=== PATIENT | female | born 1945 | race Caucasian/White ===

== ENCOUNTER 2017-06-10 07:49 | Inpatient (IN) ==
[2017-06-10] MEDS ORDERED: 0.9 % Sodium Chloride 1,000 ML IVC ONE (07:57)
[2017-06-10] MEDS ORDERED: Ondansetron 4 MG/2 ML VIAL IVP ONE (07:57)
[2017-06-10] MEDS ORDERED: *HR* FentaNYL (PF) 100 MCG/2 ML VIAL IVP ONE (07:58)
--- NOTE | 2017-06-10 08:06 | Emergency Department Note ---
Disposition Clinical Impression: Hyponatremia Chest pain Qualifiers: Chest pain type: unspecified Qualified Code(s): R07.9 - Chest pain, unspecified Abdominal pain Qualifiers: Abdominal location: epigastric Qualified Code(s): R10.13 - Epigastric pain Disposition: Admitted As Inpatient Condition: Good Abdominal Pain HPI - General Chief Complaint: ED Abdominal Pain Stated Complaint: abd pain Time Seen by Provider: 06/10/17 07:56 Source: patient Mode of arrival: private vehicle Limitations: no limitations Nursing Notes Reviewed: Yes Vital Signs Reviewed: Yes - History of Present Illness HPI Narrative: 71-year-old female history of hypertension, hyperlipidemia, status post appendectomy in the 60s who presents to the ER via EMS due to abdominal pain nausea and vomiting. Patient reports symptoms started yesterday evening. She was nauseated throughout the night had a few episodes of vomiting. Describes the pain as initially in her lower chest and epigastric area with a burning sensation. States it then moved to her left upper quadrant. She has no prior history of pain like this. No history of cardiovascular disease. The states she has palpitations but takes medications for. No fevers, chest pain or shortness of breath at time of arrival. No dysuria or hematuria. No recent illnesses with the exception of bronchitis which she recovered from. No other complaints. Pt Subjective Complaint: abdominal pain Onset (ago): hour(s) Consistency: constant Location: LUQ, epigastric Pain Severity: moderate Pain Scale: 7 Quality: burning Radiation: none Migration to: LUQ Improves with: nothing Worsens with: other (Palpation) Associated symptoms: Reports: nausea, vomiting. Denies: diarrhea, fever, dysuria, hematuria Treatments prior to arrival: none - Related Data Home Medications Medication Instructions Recorded Confirmed Levothyroxine Sodium [Levoxyl] 50 mcg PO DAILY 06/10/17 06/10/17 Metoprolol XL (24 HR) Succ [Toprol 25 mg PO DAILY 06/10/17 06/10/17 XL] [place]-3/Dha/Epa/Fish Oil [Fish Oil 1 cap PO QID 06/10/17 06/10/17 1,000 mg Softgel] Simvastatin [Zocor] 40 mg PO HS 06/10/17 06/10/17 Allergies Allergy/AdvReac Type Severity Reaction Status Date / Time Amoxicillin [From Augmentin] Allergy Rash Verified 06/10/17 07:56 peace Allergy Rash Verified 06/10/17 07:56 clavulanic acid Allergy Rash Verified 06/10/17 07:56 [From Augmentin] diazepam Allergy Rash Verified 06/10/17 07:56 egg Allergy Rash Verified 06/10/17 07:56 ibuprofen Allergy Rash Verified 06/10/17 07:56 peanut Allergy Anaphylaxis Verified 06/10/17 07:56 Penicillins Allergy Rash Verified 06/10/17 07:56 Cyclobenzaprine AdvReac Numbness Verified 06/10/17 09:31 prednisone AdvReac Gastrointestinal Verified 06/10/17 09:31 Upset metals Allergy Rash Uncoded 06/10/17 07:56 All systems ED: reviewed and negative except as stated. Constitutional: Denies: fever Cardiovascular: Denies: chest pain Respiratory: Denies: dyspnea Gastrointestinal: Reports: abdominal pain, nausea, vomiting. Denies: diarrhea Genitourinary: Denies: dysuria, hematuria Abdominal Pain PMH - Past Medical History Medical history: Reports: non-contributory, hypertension Female Surgical History: Reports: appendectomy Psychiatric history: Reports: no psych history - Social History Smoking status: Current some day smoker Alcohol use: Reports: none Drug use: Reports: none Physical Exam - General Limitations: no limitations General appearance: alert, in no apparent distress - Head Head exam: atraumatic, normocephalic - Eye Eye exam: Present: normal appearance - ENT ENT exam: normal exam - Neck Neck exam: Present: normal inspection, full ROM - Chest Chest inspection: Present: normal inspection, symmetric chest wall rise - Respiratory Respiratory exam: Present: normal lung sounds bilaterally - Cardiovascular Cardiovascular exam: Present: regular rate, normal rhythm, normal heart sounds - Abdominal Exam Abdominal exam: Present: soft, tenderness (There is mild epigastric and left upper quadrant tenderness without rigidity or guarding.). Absent: guarding, rigidity - Extremities Exam Extremities exam: Present: normal inspection, full ROM - Expanded Upper Extremity Exam Shoulder exam: Present: normal inspection, full ROM Arm exam: Present: normal inspection, full ROM Elbow exam: Present: normal inspection, full ROM Forearm/Wrist exam: Present: normal inspection, full ROM Hand exam: Present: normal inspection, full ROM - Expanded Lower Extremity Exam Hip/Pelvis exam: Present: normal inspection, full ROM Upper leg exam: Present: normal inspection, full ROM Knee exam: Present: normal inspection, full ROM Lower leg exam: Present: normal inspection, full ROM Ankle exam: Present: normal inspection, full ROM Foot/toe exam: Present: normal inspection, full ROM - Skin Skin exam: Present: warm, dry Course Course Narrative: Patient seen and examined. Vital signs reviewed. We will obtain a CT scan of the abdomen and pelvis for evaluation of abdominal pain. Given her proximity of her pain to her chest we will also obtain an EKG and troponin. We will also give her some IV fluids, GI cocktail and IV pain medication. Vital Signs Temperature 97.8 F 06/10/17 07:53 Pulse Rate 63 06/10/17 07:53 Respiratory Rate 20 06/10/17 07:53 Blood Pressure 177/82 06/10/17 07:53 O2 Sat by Pulse Oximetry 96 06/10/17 07:53 Temperature 97.8 F 06/10/17 07:53 Pulse Rate 63 06/10/17 07:53 Respiratory Rate 20 06/10/17 07:53 Blood Pressure 177/82 06/10/17 07:53 O2 Sat by Pulse Oximetry 96 06/10/17 07:53 Oxygen Delivery Oxygen Delivery Room Air Abdominal Pain - MDM Narrative Medical decision making narrative: 71-year-old female presents to the ER due to abdominal pain nausea and vomiting. She has been sick since yesterday. Her EKG here shows no ischemic findings. Troponin within normal limits. CT scan of the abdomen and pelvis without acute pathology. She is noted to be hyponatremic here at 117 without an obvious etiology. She does have a recent cough treated with antibiotics. We did add legionella antigen on for potential hyponatremia. She is admitted to the hospitalist service for hyponatremia, chest and abdominal pain. - Medical Records Medical records reviewed: Yes I reviewed the patient's medical records. - Lab Data Lab results reviewed: Yes I reviewed the patient's lab results. Result diagrams: 06/10/17 08:11 06/10/17 08:11 Lab Results 06/10/17 06/10/17 06/10/17 Range/Units 08:11 08:11 08:11 WBC 11.8 H (4.3-11.1) K/mcL RBC 4.67 (3.82-4.97) M/mcL Hgb 13.9 (11.5-15.4) g/dL Hct 39.7 (35.3-44.9) % MCV 85.0 (83.0-100.0) fL MCH 29.8 (28.0-33.3) pg MCHC 35.0 (31.6-35.5) g/dL RDW 11.5 (11.5-14.5) % Plt Count 303 (140-400) K/mcL MPV 9.6 (9.4-12.4) fL Immature Gran % 0.6 (0-4) % Seg Neutrophils % 78.1 % Lymphocytes % 15.4 % Monocytes % 4.4 % Eosinophils % 1.0 % Basophils % 0.5 % Neutrophils # 9.2 H (1.6-8.9) K/mcL Lymphocytes # 1.8 (0.6-4.6) K/mcL Monocytes # 0.5 (0.0-1.3) K/mcL Eosinophils # 0.1 (0.0-0.6) K/mcL Basophils # 0.1 (0.0-0.2) K/mcL Sodium 117 L* (136-145) mEq/L Potassium 4.0 (3.5-5.1) mEq/L Chloride 84 L (98-107) mEq/L Carbon Dioxide 28 (23-29) mEq/L BUN 5 L (8-23) mg/dL Creatinine 0.57 L (0.60-1.20) mg/dL Est GFR ( Amer) > 60 (> 60) Est GFR (Non-Af Amer) > 60 (> 60) BUN/Creatinine Ratio 9 (6-26) Glucose 127 H (70-105) mg/dL Calculated Osmolality 243 L (280-300) Calcium 9.1 (8.6-10.3) mg/dL Total Bilirubin 0.9 (0.3-1.0) mg/dL Direct Bilirubin 0.2 (0.0-0.2) mg/dL Indirect Bilirubin 0.7 (0.0-1.2) mg/dL AST 16 (13-39) Units/L ALT 13 (7-52) Units/L Alkaline Phosphatase 88 (34-104) Units/L Troponin I < 0.03 (< 0.04) ng/mL Serum Total Protein 6.6 (6.4-8.9) g/dL Albumin 4.0 (3.5-5.7) g/dL Globulin 2.6 (2.4-3.5) g/dL Albumin/Globulin Ratio 1.5 (1.1-2.2) Lipase 19 (11-82) Units/L Urine Color (Yellow) Urine Clarity (Clear) Urine pH (5.0-8.0) pH Units Ur Specific [place] (1.010-1.025) Urine Protein (Neg-Trace) mg/dL Urine Glucose (UA) (Normal) mg/dL Urine Ketones (Negative) mg/dL Urine Blood (Negative) Urine Nitrite (Negative) Urine Bilirubin (Negative) Urine Urobilinogen (Normal) mg/dL Ur Leukocyte Esterase (Negative) Urine Microscopic RBC (0-3) per hpf Urine Microscopic WBC (0-3) per hpf Ur Squamous Epith Cells (None-Few) per lpf Urine Bacteria (None-Few) per hpf Hyaline Casts (None-Few) per lpf Ur Culture Indicated? (NO) 06/10/17 Range/Units 08:15 WBC (4.3-11.1) K/mcL RBC (3.82-4.97) M/mcL Hgb (11.5-15.4) g/dL Hct (35.3-44.9) % MCV (83.0-100.0) fL MCH (28.0-33.3) pg MCHC (31.6-35.5) g/dL RDW (11.5-14.5) % Plt Count (140-400) K/mcL MPV (9.4-12.4) fL Immature Gran % (0-4) % Seg Neutrophils % % Lymphocytes % % Monocytes % % Eosinophils % % Basophils % % Neutrophils # (1.6-8.9) K/mcL Lymphocytes # (0.6-4.6) K/mcL Monocytes # (0.0-1.3) K/mcL Eosinophils # (0.0-0.6) K/mcL Basophils # (0.0-0.2) K/mcL Sodium (136-145) mEq/L Potassium (3.5-5.1) mEq/L Chloride (98-107) mEq/L Carbon Dioxide (23-29) mEq/L BUN (8-23) mg/dL Creatinine (0.60-1.20) mg/dL Est GFR ( Amer) (> 60) Est GFR (Non-Af Amer) (> 60) BUN/Creatinine Ratio (6-26) Glucose (70-105) mg/dL Calculated Osmolality (280-300) Calcium (8.6-10.3) mg/dL Total Bilirubin (0.3-1.0) mg/dL Direct Bilirubin (0.0-0.2) mg/dL Indirect Bilirubin (0.0-1.2) mg/dL AST (13-39) Units/L ALT (7-52) Units/L Alkaline Phosphatase (34-104) Units/L Troponin I (< 0.04) ng/mL Serum Total Protein (6.4-8.9) g/dL Albumin (3.5-5.7) g/dL Globulin (2.4-3.5) g/dL Albumin/Globulin Ratio (1.1-2.2) Lipase (11-82) Units/L Urine Color Yellow (Yellow) Urine Clarity Cloudy A (Clear) Urine pH 7.5 (5.0-8.0) pH Units Ur Specific [place] 1.015 (1.010-1.025) Urine Protein >=300 H (Neg-Trace) mg/dL Urine Glucose (UA) Normal (Normal) mg/dL Urine Ketones Negative (Negative) mg/dL Urine Blood Negative (Negative) Urine Nitrite Negative (Negative) Urine Bilirubin Negative (Negative) Urine Urobilinogen Normal (Normal) mg/dL Ur Leukocyte Esterase Negative (Negative) Urine Microscopic RBC 0-3 (0-3) per hpf Urine Microscopic WBC 0-3 (0-3) per hpf Ur Squamous Epith Cells Many H (None-Few) per lpf Urine Bacteria None Seen (None-Few) per hpf Hyaline Casts None Seen (None-Few) per lpf Ur Culture Indicated? NO (NO) - Radiology Data Radiology results reviewed: Yes I reviewed the patient's radiology results. Abdomen/Pelvis CT 06/10/17 07:57 IMPRESSION: No acute findings within the abdomen or pelvis. No evidence of obstructive uropathy. Colonic diverticulosis with no acute features. D/ / 06/10/2017 09:43:34 Junaid Hobbs MD / [facility] Interpreting Provider: Junaid Hobbs MD Chest X-Ray 02/08/18 09:28 IMPRESSION: No acute pneumonia. D/ / 06/10/2017 10:10:12 Berto Hernandez MD / [facility] Interpreting Provider: Berto Hernandez MD - EKG Data EKG attestation: Yes I reviewed and interpreted this EKG. EKG results narrative: EKG demonstrates sinus rhythm with a rate of 61 bpm. Normal axis. Normal intervals. Normal of her progression. No gross ST elevations or depressions. No acute ischemic findings. No significant changes from previous EKG dated 11/27. S.B.A.R. - S.B.A.R. Situation: Demographics, MOA Background: Presenting Complaint, Relevant PMH, Meds, & Allergies Assessment: Course and respsone to treatment, Exam Concerns, Patient/Family Expectation, Pertinant Lab Results Recommendation: Barrier(s) to disposition, Recommendation based on pending studies, treatments, or consults S.B.A.R. Report Given to: Dr. Clinton Attestation Statement - Attestation Attestation: I examined this patient and my medical decision-making was reviewed with the Resident Physician, Dr. Jaimes. I agree with the documented findings, disposition and treatment plan as described except to the extent set forth below. Patient is a 71-year-old white female with a history of hypertension hyperlipidemia who presented to the emergency department with complaints of epigastric burning type pain associated with nausea and vomiting that began last night. Patient states she has been having a burning sensation in the epigastric area and this morning is moved over to the left upper quadrant with ongoing nausea. Patient denies any bowel changes, no flank pain or urinary symptoms, no fevers or chills. Patient's been having a bad bronchitis that she just completed a pack of Zithromax and steroids for and her states she is still coughing significantly with productive yellow sputum. Patient having no respiratory distress or increased work of breathing at bedside. I agree with the patient's physical exam findings as documented, vital signs are stable. She reports taking aspirin at home this morning because she was concerned that there were episodes where the pain moved up into her substernal chest area and she was worried that it could be symptoms due to her heart although she reports having difficulty tolerating aspirin. After taking that she feels like her pain increased. Patient had no vomiting while in the ED. Patient's EKG shows normal sinus rhythm at 61 bpm without acute ischemia. Patient had lab evaluation including cardiac enzymes, hepatic panel and lipase, urinalysis as well as chest x-ray and CT imaging of the abdomen and pelvis. At this time all of patient's lab and imaging evaluation is within normal limits. The exception to her labs is hyponatremia at 117. Patient reports that she was aware of this she had her annual exam and on ago with her primary care physician and he had called and told her that her sodium was low and that she was to increase salty snacks. Patient has never had a low sodium in the past, denies any new medications with the exception of her recent antibiotics. At this time we will admit the patient for further evaluation and management of this epigastric/substernal pain with serial enzymes, as well as additional treatment and management of her hyponatremia. Case will be discussed with the hospitalist.
[2017-06-10] MEDS ORDERED: GI Cocktail 40 ML EACH PO ONE (08:07)
[2017-06-10 08:19] LABS: Bilirubin,Urine Negative (Negative); Blood,Urine Negative (Negative); Clarity,Urine Cloudy (Clear); Color,Urine Yellow (Yellow); Glucose,Urine (UA) Normal (Normal); Ketones,Urine Negative (Negative); Leukocyte Esterase,Urine Negative (Negative); Nitrite,Urine Negative (Negative); PH,Urine 7.5 pH Units (5.0-8.0); Protein,Urine >=300 mg/dL (Neg-Trace); Specific Gravity,Urine 1.015 (1.010-1.025); Urobilinogen,Urine Normal (Normal)
[2017-06-10 08:21] LABS: Basophils # 0.1 K/mcL (0.0-0.2); Basophils % 0.5 %; Eosinophils # 0.1 K/mcL (0.0-0.6); Hematocrit 39.7 % (35.3-44.9); Hemoglobin 13.9 g/dL (11.5-15.4); Immature Granulocytes % 0.6 % (0-4); Lymphocytes # 1.8 K/mcL (0.6-4.6); Lymphocytes % 15.4 %; Mean Corpuscular Hemoglobin 29.8 pg (28.0-33.3); Mean Platelet Volume 9.6 fL (9.4-12.4); Monocytes # 0.5 K/mcL (0.0-1.3); Monocytes % 4.4 %; Neutrophils # 9.2 K/mcL (1.6-8.9); Platelet Count 303 K/mcL (140-400); Red Blood Count 4.67 M/mcL (3.82-4.97); Red Cell Distribution Width 11.5 % (11.5-14.5); Segmented Neutrophils % 78.1 %
[2017-06-10 08:22] LABS: Bacteria,Urine None Seen per hpf (None-Few); Hyaline Casts,Urine None Seen per lpf (None-Few); RBC,Urine 0-3 per hpf (0-3); Squamous Epithelial Cell,Urine Many per lpf (None-Few); WBC,Urine 0-3 per hpf (0-3)
[2017-06-10 08:52] LABS: Alanine Aminotransferase 13 Units/L (7-52); Albumin/Globulin Ratio 1.5 (1.1-2.2); Alkaline Phosphatase 88 Units/L (34-104); Aspartate Amino Transferase 16 Units/L (13-39); BUN/Creatinine Ratio 9 (6-26); Bilirubin,Direct 0.2 mg/dL (0.0-0.2); Bilirubin,Indirect 0.7 mg/dL (0.0-1.2); Bilirubin,Total 0.9 mg/dL (0.3-1.0); Blood Urea Nitrogen 5 mg/dL (8-23); Calcium 9.1 mg/dL (8.6-10.3); Carbon Dioxide 28 mEq/L (23-29); Chloride 84 mEq/L (98-107); Globulin 2.6 g/dL (2.4-3.5); Glucose 127 mg/dL (70-105); Lipase 19 Units/L (11-82); Osmolality,Calculated 243 (280-300); Sodium 117 mEq/L (136-145); Total Protein 6.6 g/dL (6.4-8.9); eGFR For African Americans > 60 (> 60); eGFR For Non-African Americans > 60 (> 60)
--- NOTE | 2017-06-10 11:27 | Internal Med History&Physical ---
Date of Encounter: 06/10/17 Time of Encounter: 11:23 Assessment and Plan (1) HTN (hypertension) Current visit: Yes Status: Chronic Chronic, uncontrolled we will adjust all medication as possible patient because of the vomiting that does not have an adequate therapeutic effect Qualifiers: Hypertension type: essential hypertension Qualified Code(s): I10 - Essential (primary) hypertension (2) Hyperlipidemia Current visit: Yes Status: Chronic Chronic we will check lipid profile in a.m. Qualifiers: Hyperlipidemia type: pure hypercholesterolemia Qualified Code(s): E78.00 - Pure hypercholesterolemia, unspecified; E78.0 - Pure hypercholesterolemia (3) Hypothyroidism Current visit: Yes Status: Chronic Chronic Qualifiers: Hypothyroidism type: unspecified Qualified Code(s): E03.9 - Hypothyroidism , unspecified (4) Nausea & vomiting Current visit: Yes Status: Acute There is a likely viral syndrome continue IV hydration Qualifiers: Vomiting type: unspecified Vomiting Intractability: unspecified Qualified Code(s): R11.2 - Nausea with vomiting, unspecified (5) Abdominal pain Current visit: Yes Status: Acute Exam is unremarkable abdomen is soft CT of the abdomen and pelvis unremarkable Qualifiers: Abdominal location: epigastric Qualified Code(s): R10.13 - Epigastric pain (6) Hyponatremia Current visit: Yes Status: Acute most likley hypovolemic hypoosmolar hyponatremia start on normal saline Internal Medicine - H&P: HPI Chief complaint: abd pain, nausea and vomitting Admitted From: Emergency Dept Plans for Post Hospital Care: Home History of present illness: Ms. Scruggs is a 71 year old female Patient with history of hypertension, high cholesterol, hypothyroidism, patient was being treated as an outpatient for bronchitis with Zithromax by PCP physician presented to the emergency room with nausea , vomiting and epigastric pain describes as burning sensation and also lower chest area decided to come into the emergency room emergency room was given GI cocktail and some IV fluid evaluation was unremarkable CT of the abdomen was unremarkable chest x-ray was negative of concern sodium was 117 therefore she been admitted for further evaluation and treatment. White count mildly elevated at 11,000 denies any fever or chills as some mostly dry cough no diarrhea Past Med Surg Social Fam HX - Past Medical History Medical history: non-contributory, hypertension Psychiatric history: no psych history - Social History Smoking Status: Current some day smoker Smokeless Tobacco Status: No Alcohol use: none Drug use: none Internal Medicine - H&P: Meds Levothyroxine Sodium [Levoxyl] 50 mcg PO DAILY 06/10/17 [History] Metoprolol XL (24 HR) Succ [Toprol XL] 25 mg PO DAILY 06/10/17 [History] [place]-3/Dha/Epa/Fish Oil [Fish Oil 1,000 mg Softgel] 1 cap PO QID 06/10/17 [ History] Simvastatin [Zocor] 40 mg PO HS 06/10/17 [History] 3 Allergy/AdvReac Type Severity Reaction Status Date / Time Amoxicillin [From Augmentin] Allergy Rash Verified 06/10/17 07:56 peace Allergy Rash Verified 06/10/17 07:56 clavulanic acid Allergy Rash Verified 06/10/17 07:56 [From Augmentin] diazepam Allergy Rash Verified 06/10/17 07:56 egg Allergy Rash Verified 06/10/17 07:56 ibuprofen Allergy Rash Verified 06/10/17 07:56 peanut Allergy Anaphylaxis Verified 06/10/17 07:56 Penicillins Allergy Rash Verified 06/10/17 07:56 Cyclobenzaprine AdvReac Numbness Verified 06/10/17 09:31 prednisone AdvReac Gastrointestinal Verified 06/10/17 09:31 Upset metals Allergy Rash Uncoded 06/10/17 07:56 All Systems PM: A 10-system review of systems was performed and is negative for pertinent findings except as documented above in the HPI. - Constitutional Constitutional: no chills, no fever(s), no night sweats - EENT Eyes: no change in vision, no discharge, no pain, no photophobia Ears: no ear discharge, no ear pain, no tinnitus Nose, mouth and throat: no dysphagia, no nasal discharge, no neck pain, no sore throat - Cardiovascular Cardiovascular ROS IM: no chest pain, no diaphoresis, no dyspnea, no lightheadedness, no palpitations, no syncope - Respiratory Respiratory: no cough, no dyspnea, no wheezing, no excessive phlegm production - Gastrointestinal Gastrointestinal: nausea, vomiting - Genitourinary Genitourinary: no change in urinary stream, no dysuria, no flank pain, no hematuria - Musculoskeletal Musculoskeletal ROS IM: no numbness, no tingling - Integumentary Integumentary IM: no rash, no unusual bruising - Constitutional Vitals: Temp Pulse Resp BP Pulse Ox 97.8 F 63 20 177/82 96 06/10/17 07:53 06/10/17 07:53 06/10/17 07:53 06/10/17 07:53 06/10/17 07:53 General appearance: Present: A&O X 3 - Eye Eye exam: Present: PERRL, conjuntiva pink, sclera anicteric Pupils: Present: PERRL - Neck Neck exam general surgery: Present: supple, trachea midline. Absent: lymphadenopathy - Cardiovascular Cardiovascular exam: Present: RRR, +S1, +S2. Absent: diastolic murmur, gallop, rubs, systolic murmur - GI/Abdominal GI/Abdominal exam: Present: soft - Extremities Exam Extremities exam: Present: warm, radial pulses palpable and symmetrical. Absent : calf tenderness, cyanotic, pedal edema Internal Med - H&P Results - Labs CBC & Chem 7: 06/10/17 08:11 06/10/17 08:11 Labs: Short CBC 06/10/17 Range/Units 08:11 WBC 11.8 H (4.3-11.1) K/mcL Hgb 13.9 (11.5-15.4) g/dL Hct 39.7 (35.3-44.9) % Plt Count 303 (140-400) K/mcL Neutrophils # 9.2 H (1.6-8.9) K/mcL BMP 06/10/17 08:11 Sodium 117 L* Potassium 4.0 Chloride 84 L Carbon Dioxide 28 BUN 5 L Creatinine 0.57 L Glucose 127 H Calcium 9.1 Cardiac Enzymes 06/10/17 Range/Units 08:11 Troponin I < 0.03 (< 0.04) ng/mL Liver Function 06/10/17 Range/Units 08:11 Total Bilirubin 0.9 (0.3-1.0) mg/dL Direct Bilirubin 0.2 (0.0-0.2) mg/dL AST 16 (13-39) Units/L ALT 13 (7-52) Units/L Alkaline Phosphatase 88 (34-104) Units/L Albumin 4.0 (3.5-5.7) g/dL Urine 06/10/17 Range/Units 08:15 Urine Color Yellow (Yellow) Urine Clarity Cloudy A (Clear) Urine pH 7.5 (5.0-8.0) pH Units Ur Specific [place] 1.015 (1.010-1.025) Urine Protein >=300 H (Neg-Trace) mg/dL Urine Glucose (UA) Normal (Normal) mg/dL - Impressions ITS Impressions Abdomen/Pelvis CT 06/10/17 07:57 IMPRESSION: No acute findings within the abdomen or pelvis. No evidence of obstructive uropathy. Colonic diverticulosis with no acute features. D/ / 06/10/2017 09:43:34 Junaid Hobbs MD / [facility] Interpreting Provider: Junaid Hobbs MD Chest X-Ray 06/10/17 09:28 IMPRESSION: No acute pneumonia. D/ / 06/10/2017 10:10:12 Berto Hernandez MD / [facility] Interpreting Provider: Berto Hernandez MD
[2017-06-10] MEDS ORDERED: traMADol 50 MG TABLET PO PRN (11:37)
[2017-06-10] MEDS ORDERED: Naloxone 0.4 MG/ML INJ IVP PRN (11:37)
[2017-06-10] MEDS ORDERED: Acetaminophen 325 MG TABLET PO PRN (11:37)
[2017-06-10] MEDS ORDERED: (Omega-3/Dha/Epa/Fish Oil [Fish Oil 1,000 Mg Softgel) PO SCH (13:00)
[2017-06-10] MEDS: 0.9 % Sodium Chloride 1,000 ML IVC SCH (13:15)
[2017-06-10] MEDS ORDERED: Ondansetron 4 MG/2 ML VIAL IVP PRN (17:52)
[2017-06-11] MEDS: 0.9 % Sodium Chloride 1,000 ML IVC SCH ×3 (00:08→20:33)
[2017-06-11 00:41] LABS: Basophils # 0.1 K/mcL (0.0-0.2); Basophils % 0.5 %; Eosinophils # 0.1 K/mcL (0.0-0.6); Eosinophils % 1.3 %; Hematocrit 32.9 % (35.3-44.9); Immature Granulocytes % 0.5 % (0-4); Lymphocytes # 2.7 K/mcL (0.6-4.6); Lymphocytes % 25.8 %; Mean Corpuscular HGB Conc 36.2 g/dL (31.6-35.5); Mean Corpuscular Hemoglobin 30.5 pg (28.0-33.3); Mean Corpuscular Volume 84.4 fL (83.0-100.0); Mean Platelet Volume 9.7 fL (9.4-12.4); Monocytes # 0.6 K/mcL (0.0-1.3); Monocytes % 5.5 %; Platelet Count 247 K/mcL (140-400); Red Cell Distribution Width 11.7 % (11.5-14.5); Segmented Neutrophils % 66.4 %
[2017-06-11 00:45] LABS: Hemoglobin 11.9 g/dL (11.5-15.4)
[2017-06-11 02:13] LABS: Alanine Aminotransferase 11 Units/L (7-52); Albumin 3.3 g/dL (3.5-5.7); Albumin/Globulin Ratio 1.6 (1.1-2.2); Alkaline Phosphatase 74 Units/L (34-104); Aspartate Amino Transferase 18 Units/L (13-39); BUN/Creatinine Ratio 8 (6-26); Bilirubin,Total 0.7 mg/dL (0.3-1.0); Blood Urea Nitrogen 5 mg/dL (8-23); Calcium 8.3 mg/dL (8.6-10.3); Carbon Dioxide 24 mEq/L (23-29); Chloride 89 mEq/L (98-107); Chol/HDL Ratio 2.9 (0-4.9); Cholesterol 124 mg/dL (< 200); Globulin 2.1 g/dL (2.4-3.5); Glucose 150 mg/dL (70-105); HDL Cholesterol 43 mg/dL (40-59); LDL Cholesterol,Calculated 60 mg/dL (0-99); Magnesium 1.6 mg/dL (1.6-2.6); Osmolality,Calculated 248 (280-300); Potassium 3.4 mEq/L (3.5-5.1); Sodium 119 mEq/L (136-145); Total Protein 5.4 g/dL (6.4-8.9); Triglycerides 107 mg/dL (< 150); eGFR For African Americans > 60 (> 60); eGFR For Non-African Americans > 60 (> 60)
--- NOTE | 2017-06-11 06:42 | Electrocardiograph Report ---
[facility] Test Date: 2017-06-10 Pat Name: Kalie Scruggs Department: 104 Room: [facility] Gender: F [employer] Tower Operator: CANDACE : 1945 Requested By: Williams Jaimes Order Number: [id number] Reading MD: Chace Frye MD Measurements Intervals [place] Rate: 61 P: 64 CT: 205 QRS: 54 QRSD: 86 T: 58 QT: 423 QTc: 427 Interpretive Statements SINUS RHYTHM Electronically Signed On 06-11-2017 6:41:08 EST by Chace Frye MD
[2017-06-11] MEDS: Metoprolol XL (24 HR) Succ 25 MG TAB.ER.24H PO SCH (09:09)
[2017-06-11 09:27] LABS: BUN/Creatinine Ratio 7 (6-26); Blood Urea Nitrogen 4 mg/dL (8-23); Calcium 8.7 mg/dL (8.6-10.3); Carbon Dioxide 27 mEq/L (23-29); Chloride 91 mEq/L (98-107); Glucose 101 mg/dL (70-105); Magnesium 1.9 mg/dL (1.6-2.6); Osmolality,Calculated 251 (280-300); Phosphorous 3.4 mg/dL (2.7-4.5); Potassium 4.1 mEq/L (3.5-5.1); Sodium 122 mEq/L (136-145); eGFR For African Americans > 60 (> 60); eGFR For Non-African Americans > 60 (> 60)
--- NOTE | 2017-06-11 14:05 | Internal Med Progress Note ---
Date of Encounter: 06/11/17 Time of Encounter: 14:03 - Assessment and plan (1) Abdominal pain Current Visit: Yes Status: Resolved Assessment and plan: reports of mild epigastric discomfort will start PPI tolerating PO intake well at this time Qualifiers: Abdominal location: epigastric Qualified Code(s): R10.13 - Epigastric pain (2) Hyponatremia Current Visit: Yes Status: Acute Assessment and plan: likely secondary to poor PO intake improving goal improvement in 24 hours: 6-8meq will repeat BMP at 5pm, if Na greater than 130, will start D5W 0.45% NS continue NS at this time clinically asymptomatic (3) Nausea & vomiting Current Visit: Yes Status: Acute Assessment and plan: improved continue anti-emetics as needed Qualifiers: Vomiting type: unspecified Vomiting Intractability: unspecified Qualified Code(s): R11.2 - Nausea with vomiting, unspecified (4) HTN (hypertension) Current Visit: Yes Status: Chronic Assessment and plan: BP within acceptable range continue home meds Qualifiers: Hypertension type: essential hypertension Qualified Code(s): I10 - Essential (primary) hypertension (5) Hyperlipidemia Current Visit: Yes Status: Chronic Assessment and plan: continue home meds Qualifiers: Hyperlipidemia type: pure hypercholesterolemia Qualified Code(s): E78.00 - Pure hypercholesterolemia, unspecified; E78.0 - Pure hypercholesterolemia (6) Hypothyroidism Current Visit: Yes Status: Chronic Assessment and plan: continue levothyroxine Qualifiers: Hypothyroidism type: unspecified Qualified Code(s): E03.9 - Hypothyroidism , unspecified (7) DVT prophylaxis Current Visit: Yes Status: Acute Assessment and plan: Heparin SQ - Subjective Interval history: Pt seen and examined with family present at bedside. Resting in bed. denies any nausea or vomiting. Tolerating PO intake. Reports of epigastric pain which is improved since admission. States she has history of acid reflux however she only takes her PPI occasionally. Denies any chest pain, sob, headache, n/v at this time. - Constitutional Vitals: Temp Pulse Resp BP Pulse Ox 98.4 F 69 17 130/71 94 06/11/17 10:49 06/11/17 10:49 06/11/17 10:49 06/11/17 10:49 06/11/17 10:49 General appearance: Present: cooperative, A&O X 3, pleasant, no acute distress - Head Head exam: Present: atraumatic, normocephalic - Eye Eye exam: Present: conjuntiva pink, sclera anicteric - Respiratory Respiratory exam: Present: CTAB. Absent: respiratory distress, wheezes - Cardiovascular Cardiovascular exam: Present: RRR, +S1, +S2. Absent: diastolic murmur, gallop, rubs, systolic murmur - GI/Abdominal GI/Abdominal exam: Present: normal bowel sounds, soft, no peritoneal signs. Absent: distended, tenderness - Extremities Exam Extremities exam: Present: warm, radial pulses palpable and symmetrical. Absent : calf tenderness, pedal edema - Neurological Exam Neurological exam: Present: alert, oriented X3 - Psychiatric Psychiatric exam: Present: normal affect, normal mood Internal Medicine: Result - Labs CBC & Chem 7: 06/11/17 00:30 06/11/17 08:57 Labs: BMP 06/11/17 08:57 Sodium 122 L Potassium 4.1 Chloride 91 L Carbon Dioxide 27 BUN 4 L Creatinine 0.61 Glucose 101 Calcium 8.7 Consult Discharge Plan - Plan Referrals: Scott Shine DO [Primary Care Provider] -
[2017-06-11] MEDS: *HR* Heparin 5,000 UNIT/ML VIAL SQ SCH (17:26)
[2017-06-11 18:10] LABS: BUN/Creatinine Ratio 11 (6-26); Blood Urea Nitrogen 7 mg/dL (8-23); Calcium 8.5 mg/dL (8.6-10.3); Carbon Dioxide 25 mEq/L (23-29); Chloride 92 mEq/L (98-107); Glucose 147 mg/dL (70-105); Osmolality,Calculated 255 (280-300); Potassium 3.9 mEq/L (3.5-5.1); Sodium 122 mEq/L (136-145); eGFR For African Americans > 60 (> 60); eGFR For Non-African Americans > 60 (> 60)
[2017-06-12] MEDS: *HR* Heparin 5,000 UNIT/ML VIAL SQ SCH ×2 (05:50→16:55)
[2017-06-12] MEDS: 0.9 % Sodium Chloride 1,000 ML IVC SCH ×2 (06:40→16:56)
[2017-06-12 07:49] LABS: Basophils # 0.1 K/mcL (0.0-0.2); Basophils % 0.6 %; Eosinophils # 0.1 K/mcL (0.0-0.6); Eosinophils % 1.4 %; Hematocrit 33.1 % (35.3-44.9); Hemoglobin 11.5 g/dL (11.5-15.4); Immature Granulocytes % 0.4 % (0-4); Lymphocytes # 2.1 K/mcL (0.6-4.6); Lymphocytes % 27.3 %; Mean Corpuscular HGB Conc 34.7 g/dL (31.6-35.5); Mean Corpuscular Hemoglobin 30.1 pg (28.0-33.3); Mean Corpuscular Volume 86.6 fL (83.0-100.0); Mean Platelet Volume 10.6 fL (9.4-12.4); Monocytes # 0.6 K/mcL (0.0-1.3); Monocytes % 7.2 %; Neutrophils # 4.9 K/mcL (1.6-8.9); Platelet Count 240 K/mcL (140-400); Red Blood Count 3.82 M/mcL (3.82-4.97); Red Cell Distribution Width 11.9 % (11.5-14.5); Segmented Neutrophils % 63.1 %
[2017-06-12] MEDS: Metoprolol XL (24 HR) Succ 25 MG TAB.ER.24H PO SCH (07:49)
[2017-06-12 08:10] LABS: BUN/Creatinine Ratio 9 (6-26); Blood Urea Nitrogen 5 mg/dL (8-23); Calcium 8.5 mg/dL (8.6-10.3); Carbon Dioxide 22 mEq/L (23-29); Chloride 97 mEq/L (98-107); Glucose 147 mg/dL (70-105); Magnesium 1.8 mg/dL (1.6-2.6); Osmolality,Calculated 262 (280-300); Phosphorous 3.6 mg/dL (2.7-4.5); Sodium 126 mEq/L (136-145); eGFR For African Americans > 60 (> 60); eGFR For Non-African Americans > 60 (> 60)
--- NOTE | 2017-06-12 15:50 | Internal Med Progress Note ---
Date of Encounter: 06/12/17 Time of Encounter: 15:16 - Assessment and plan (1) Abdominal pain Current Visit: Yes Status: Resolved Assessment and plan: reports of mild epigastric discomfort continue PPI tolerating PO intake well at this time Qualifiers: Abdominal location: epigastric Qualified Code(s): R10.13 - Epigastric pain (2) Hyponatremia Current Visit: Yes Status: Acute Assessment and plan: likely secondary to poor PO intake improving goal improvement in 24 hours: 6-8meq will repeat BMP at 5pm, if Na greater than 134, will start D5W 0.45% NS continue NS at this time clinically asymptomatic (3) Nausea & vomiting Current Visit: Yes Status: Acute Assessment and plan: improved continue anti-emetics as needed Qualifiers: Vomiting type: unspecified Vomiting Intractability: unspecified Qualified Code(s): R11.2 - Nausea with vomiting, unspecified (4) HTN (hypertension) Current Visit: Yes Status: Chronic Assessment and plan: BP within acceptable range continue home meds Qualifiers: Hypertension type: essential hypertension Qualified Code(s): I10 - Essential (primary) hypertension (5) Hyperlipidemia Current Visit: Yes Status: Chronic Assessment and plan: continue home meds Qualifiers: Hyperlipidemia type: pure hypercholesterolemia Qualified Code(s): E78.00 - Pure hypercholesterolemia, unspecified; E78.0 - Pure hypercholesterolemia (6) Hypothyroidism Current Visit: Yes Status: Chronic Assessment and plan: continue levothyroxine Qualifiers: Hypothyroidism type: unspecified Qualified Code(s): E03.9 - Hypothyroidism , unspecified (7) DVT prophylaxis Current Visit: Yes Status: Acute Assessment and plan: Heparin SQ - Subjective Interval history: Pt seen and examined with family present at bedside. Resting in bed. denies any nausea or vomiting. Tolerating PO intake. Reports of improvement in epigastric pain - Constitutional Vitals: Temp Pulse Resp BP Pulse Ox 98.1 F 69 16 161/75 96 06/12/17 15:44 06/12/17 15:44 06/12/17 15:44 06/12/17 15:44 06/12/17 15:44 General appearance: Present: cooperative, A&O X 3, pleasant, no acute distress - Head Head exam: Present: atraumatic, normocephalic - Eye Eye exam: Present: conjuntiva pink, sclera anicteric - Respiratory Respiratory exam: Present: CTAB. Absent: respiratory distress, wheezes - Cardiovascular Cardiovascular exam: Present: RRR, +S1, +S2. Absent: diastolic murmur, gallop, rubs, systolic murmur - GI/Abdominal GI/Abdominal exam: Present: normal bowel sounds, soft, no peritoneal signs. Absent: distended, tenderness - Extremities Exam Extremities exam: Present: warm, radial pulses palpable and symmetrical. Absent : calf tenderness, pedal edema - Neurological Exam Neurological exam: Present: alert, oriented X3 Internal Medicine: Result - Labs CBC & Chem 7: 06/12/17 07:17 06/12/17 07:17 Labs: Short CBC 06/12/17 Range/Units 07:17 WBC 7.8 (4.3-11.1) K/mcL Hgb 11.5 (11.5-15.4) g/dL Hct 33.1 L (35.3-44.9) % Plt Count 240 (140-400) K/mcL Neutrophils # 4.9 (1.6-8.9) K/mcL BMP 06/11/17 06/12/17 17:40 07:17 Sodium 122 L 126 L Potassium 3.9 4.0 Chloride 92 L 97 L Carbon Dioxide 25 22 L BUN 7 L 5 L Creatinine 0.65 0.56 L Glucose 147 H 147 H Calcium 8.5 L 8.5 L Consult Discharge Plan - Plan Referrals: Scott Shine DO [Primary Care Provider] -
[2017-06-12 20:12] LABS: BUN/Creatinine Ratio 11 (6-26); Blood Urea Nitrogen 9 mg/dL (8-23); Calcium 8.6 mg/dL (8.6-10.3); Carbon Dioxide 23 mEq/L (23-29); Chloride 98 mEq/L (98-107); Glucose 119 mg/dL (70-105); Osmolality,Calculated 266 (280-300); Potassium 4.3 mEq/L (3.5-5.1); Sodium 128 mEq/L (136-145); eGFR For African Americans > 60 (> 60); eGFR For Non-African Americans > 60 (> 60)
[2017-06-13] MEDS: 0.9 % Sodium Chloride 1,000 ML IVC SCH (02:50)
[2017-06-13] MEDS: *HR* Heparin 5,000 UNIT/ML VIAL SQ SCH (06:10)
[2017-06-13] MEDS: Metoprolol XL (24 HR) Succ 25 MG TAB.ER.24H PO SCH (08:30)
[2017-06-13 09:31] LABS: Basophils # 0.1 K/mcL (0.0-0.2); Basophils % 0.9 %; Eosinophils # 0.1 K/mcL (0.0-0.6); Eosinophils % 1.6 %; Hematocrit 35.9 % (35.3-44.9); Hemoglobin 12.1 g/dL (11.5-15.4); Immature Granulocytes % 0.4 % (0-4); Lymphocytes # 1.9 K/mcL (0.6-4.6); Lymphocytes % 25.2 %; Mean Corpuscular HGB Conc 33.7 g/dL (31.6-35.5); Mean Corpuscular Hemoglobin 30.1 pg (28.0-33.3); Mean Corpuscular Volume 89.3 fL (83.0-100.0); Mean Platelet Volume 10.5 fL (9.4-12.4); Monocytes # 0.4 K/mcL (0.0-1.3); Monocytes % 5.9 %; Neutrophils # 4.9 K/mcL (1.6-8.9); Platelet Count 276 K/mcL (140-400); Red Blood Count 4.02 M/mcL (3.82-4.97); Red Cell Distribution Width 11.9 % (11.5-14.5)
[2017-06-13 10:03] LABS: BUN/Creatinine Ratio 10 (6-26); Blood Urea Nitrogen 6 mg/dL (8-23); Calcium 8.8 mg/dL (8.6-10.3); Carbon Dioxide 28 mEq/L (23-29); Chloride 93 mEq/L (98-107); Glucose 121 mg/dL (70-105); Magnesium 1.8 mg/dL (1.6-2.6); Osmolality,Calculated 263 (280-300); Phosphorous 3.4 mg/dL (2.7-4.5); Potassium 3.6 mEq/L (3.5-5.1); Sodium 127 mEq/L (136-145); eGFR For African Americans > 60 (> 60); eGFR For Non-African Americans > 60 (> 60)
[2017-06-13 12:16] VITALS: BP 149/62
--- NOTE | 2017-06-13 12:17 | Discharge Summary ---
Date of Encounter: 06/13/17 Time of Encounter: 11:40 - Discharge Diagnosis (1) Abdominal pain Priority: Primary Status: Resolved Qualifiers: Abdominal location: epigastric Qualified Code(s): R10.13 - Epigastric pain (2) Hyponatremia Priority: Secondary Status: Acute (3) Nausea & vomiting Priority: Primary Status: Resolved Qualifiers: Vomiting type: unspecified Vomiting Intractability: unspecified Qualified Code(s): R11.2 - Nausea with vomiting, unspecified (4) HTN (hypertension) Priority: Secondary Status: Chronic Qualifiers: Hypertension type: essential hypertension Qualified Code(s): I10 - Essential (primary) hypertension (5) Hyperlipidemia Priority: Secondary Status: Chronic Qualifiers: Hyperlipidemia type: pure hypercholesterolemia Qualified Code(s): E78.00 - Pure hypercholesterolemia, unspecified; E78.0 - Pure hypercholesterolemia (6) Hypothyroidism Priority: Secondary Status: Chronic Qualifiers: Hypothyroidism type: unspecified Qualified Code(s): E03.9 - Hypothyroidism , unspecified (7) DVT prophylaxis Priority: Secondary Status: Acute - Discharge Medications Prescriptions: Omeprazole [PriLOSEC] 40 mg PO BIDAC #60 capsule. [place] Medications: Levothyroxine Sodium [Levoxyl] 50 mcg PO DAILY 06/10/17 [History] Metoprolol XL (24 HR) Succ [Toprol Xl] 25 mg PO DAILY 06/10/17 [History] Fife-3/Dha/Epa/Fish Oil [Fish Oil 1,000 mg Softgel] 1 cap PO QID 06/10/17 [ History] Simvastatin [Zocor] 40 mg PO HS 06/10/17 [History] Omeprazole [PriLOSEC] 40 mg PO BIDAC #60 capsule. 06/13/17 [Rx] Allergies/Adverse Reactions: 3 Allergy/AdvReac Type Severity Reaction Status Date / Time Amoxicillin [From Augmentin] Allergy Rash Verified 06/10/17 07:56 peace Allergy Rash Verified 06/10/17 07:56 clavulanic acid Allergy Rash Verified 06/10/17 07:56 [From Augmentin] diazepam Allergy Rash Verified 06/10/17 07:56 egg Allergy Rash Verified 06/10/17 07:56 ibuprofen Allergy Rash Verified 06/10/17 07:56 peanut Allergy Anaphylaxis Verified 06/10/17 07:56 Penicillins Allergy Rash Verified 06/10/17 07:56 Cyclobenzaprine AdvReac Numbness Verified 06/10/17 09:31 prednisone AdvReac Gastrointestinal Verified 06/10/17 09:31 Upset metals Allergy Rash Uncoded 06/10/17 07:56 Date of admission: 06/11/17 08:31 Primary care physician: Harley Edwards Consults: 06/12/17 09:34 Consult to Occupational Therapy [CONS] Stat Comment: Evaluate, develop and implement POC Reason for Consult: evaluation for disposition Consult to Physical Therapy [CONS] Stat Comment: Evaluate, develop and implement POC Reason for Consult: evaluation for disposition Discharging clinician: Baylee Conrad Anticipated date of discharge: 06/13/17 - Patient Status Disposition: Home, Self-Care Condition: Good Functional capacity at discharge: independent ambulation Overall status at discharge: patient is back to baseline - Ambulatory Orders Ambulatory Orders: Basic Metabolic Panel [CHEM] Time Frame: 1 Week, Facility: [facility], Location: Lab - Discharge Instructions Follow Up With: Scott Shine DO [Primary Care Provider] - Additional Instructions: Please follow up with your primary care physician within five days after your discharge from the hospital. Please obtain the prescribed lab work prior to your follow up with your primary care physician. Omeprazole twice a day has been added to your home medications, please ask your primary care physician about [facility] continuation of this medication Resume all other home medications as prescribed by your primary care physician. - Diet and Activity Activity: resume usual activities as tolerated Diet: low fat, low cholesterol, low salt diet Hospital course: Ms. Scruggs is a 71 year old female with PMH of HLD, HTN, Hypothyroidism who was admitted for abd pain, hyponatremia, and severe n/v. Pt was started on supportive care with IV fluids and anti-emetic support to which she responded appropriately. She reported history of acid reflux and epigastric discomfort for which she was started on PPI BID to which she responded well with complete resolution of abd pain. She has been tolerating PO intake well without any further n/v. She was noted to be hyponatremic and has history of chronic hyponatremia. Currently her Na level has returned to baseline. She is AAO x 3, hemodynamically stable and will be discharged to home with follow up with her PCP. Pt demonstrates understanding of her diagnosis and agrees with the discharge care and plan. - Time Spent with Patient Total time spent providing and/or coordinating discharge services: Less than 30 minutes - Constitutional Vitals: Temp Pulse Resp BP Pulse Ox 97.9 F 74 15 142/64 98 06/13/17 07:35 06/13/17 07:35 06/13/17 07:35 06/13/17 07:35 06/13/17 08:36 General appearance: Present: cooperative, A&O X 3, pleasant, no acute distress, answers questions appropriately - Head Head exam: Present: atraumatic, normocephalic - Eye Eye exam: Present: conjuntiva pink, sclera anicteric - Respiratory Respiratory exam: Present: CTAB. Absent: accessory muscle use, rales, rhonchi, wheezes - Cardiovascular Cardiovascular exam: Present: RRR, +S1, +S2. Absent: diastolic murmur, gallop, rubs, systolic murmur - GI/Abdominal GI/Abdominal exam: Present: normal bowel sounds, soft, no peritoneal signs. Absent: distended, tenderness - Extremities Exam Extremities exam: Present: warm, radial pulses palpable and symmetrical. Absent : calf tenderness, pedal edema - Neurological Exam Neurological exam: Present: alert, oriented X3
== END 2017-06-13 13:47 | disposition home or self-care (01) | DRG 641 ==
LOC: EMEROO 07:49 → 2ANU 07:49
PROVIDERS: ADMIT Internal Medicine Cardiovascular Disease; ATTEND Internal Medicine

== ENCOUNTER 2017-06-23 18:14 | Observation (INO) ==
[2017-06-23 20:01] LABS: Basophils # 0.1 K/mcL (0.0-0.2); Basophils % 0.6 %; Eosinophils # 0.2 K/mcL (0.0-0.6); Eosinophils % 2.1 %; Hematocrit 35.2 % (35.3-44.9); Hemoglobin 12.2 g/dL (11.5-15.4); Immature Granulocytes % 0.6 % (0-4); Lymphocytes # 2.5 K/mcL (0.6-4.6); Lymphocytes % 26.5 %; Mean Corpuscular HGB Conc 34.7 g/dL (31.6-35.5); Mean Corpuscular Hemoglobin 29.5 pg (28.0-33.3); Mean Corpuscular Volume 85.2 fL (83.0-100.0); Mean Platelet Volume 9.6 fL (9.4-12.4); Monocytes # 0.9 K/mcL (0.0-1.3); Monocytes % 9.2 %; Neutrophils # 5.7 K/mcL (1.6-8.9); Platelet Count 395 K/mcL (140-400); Red Blood Count 4.13 M/mcL (3.82-4.97); Red Cell Distribution Width 11.5 % (11.5-14.5)
[2017-06-23] MEDS ORDERED: 0.9 % Sodium Chloride 1,000 ML IVC ONE (20:08)
--- NOTE | 2017-06-23 20:11 | Emergency Department Note ---
Disposition Clinical Impression: Hyponatremia, Mediastinal mass, Hemoptysis Disposition: Admitted As Inpatient Condition: Fair Time of Disposition: 21:51 General Adult HPI - General Chief complaint: ED General Medical Stated complaint: "coughing up blood clots" Time Seen by Provider: 06/23/17 19:43 Source: patient Mode of arrival: ambulatory Limitations: no limitations Nursing Notes Reviewed: Yes Vital Signs Reviewed: Yes - History of Present Illness HPI Narrative: 71-year-old female with a history of hyponatremia with recent hospitalization, tobacco use present for evaluation of coughing up blood. Patient states symptom onset was earlier today. Denies any dyspnea. Patient states that she felt it could have been from her sinuses. Patient denies any chest pain. No fevers. Patient has abdominal pain. No nausea vomiting. Patient states she was recently admitted for low sodium. Patient had a sodium checked a few days ago and was noted to be 117 -118. Patient is not on any sodium supplementation. Patient reports not being on any blood thinners. Pain Scale: 0 - Related Data Home Medications Medication Instructions Recorded Confirmed Levothyroxine Sodium [Levoxyl] 50 mcg PO QAM 06/10/17 06/23/17 Metoprolol XL (24 HR) Succ [Toprol 25 mg PO DAILY 06/10/17 06/23/17 Xl] [place]-3/Dha/Epa/Fish Oil [Fish Oil 2 cap PO BID 06/10/17 06/23/17 1,000 mg Softgel] Simvastatin [Zocor] 40 mg PO QPM 06/10/17 06/23/17 Previous Rx's Medication Instructions Recorded Omeprazole [PriLOSEC] 40 mg PO BIDAC #60 capsule. 06/13/17 Allergies Allergy/AdvReac Type Severity Reaction Status Date / Time Amoxicillin [From Augmentin] Allergy Rash Verified 06/10/17 07:56 peace Allergy Rash Verified 06/10/17 07:56 clavulanic acid Allergy Rash Verified 06/10/17 07:56 [From Augmentin] diazepam Allergy Rash Verified 06/10/17 07:56 egg Allergy Rash Verified 06/10/17 07:56 ibuprofen Allergy Rash Verified 06/10/17 07:56 peanut Allergy Anaphylaxis Verified 06/10/17 07:56 Penicillins Allergy Rash Verified 06/10/17 07:56 Cyclobenzaprine AdvReac Numbness Verified 02/08/18 09:31 prednisone AdvReac Gastrointestinal Verified 06/10/17 09:31 Upset metals Allergy Rash Uncoded 06/10/17 07:56 All systems ED: reviewed and negative except as stated. Constitutional: Denies: fever Cardiovascular: Denies: chest pain Respiratory: Denies: cough Gastrointestinal: Denies: abdominal pain, nausea Genitourinary: Denies: urgency, dysuria Past Medical History - Past Medical History Source: patient Medical history: Reports: arthritis, hyperlipidemia, hypertension, thyroid disease Surgical history: Reports: appendectomy Psychiatric history: Reports: no psych history - Social History Smoking Status: Former smoker Smokeless Tobacco Status: No Alcohol use: Reports: none Drug use: Reports: none Physical Exam - General Limitations: no limitations General appearance: alert, in no apparent distress - Head Head exam: atraumatic, normocephalic, normal inspection - Eye Eye exam: Present: normal appearance, PERRL, EOMI - ENT ENT exam: normal exam - Neck Neck exam: Present: normal inspection - Chest Chest inspection: Present: normal inspection. Absent: symmetric chest wall rise - Respiratory Respiratory exam: Present: normal lung sounds bilaterally. Absent: respiratory distress - Cardiovascular Cardiovascular exam: Present: regular rate, normal rhythm. Absent: systolic murmur - Abdominal Exam Abdominal exam: Present: soft, Non-Tender - Extremities Exam Extremities exam: Present: normal inspection. Absent: pedal edema - Back Exam Back exam: Present: normal inspection - Neurological Exam Neurological exam: Present: alert, oriented X3, CN II-XII intact - Skin Skin exam: Present: warm, dry, intact, normal color Course - Reevaluation(s) Reevaluation #1: Patients resting comfortable. Patient's radiology results of her CAT scan were discussed. Questions were initially answered at bedside. Time: 22:57 Vital Signs Temperature 98.4 F 06/23/17 18:50 Pulse Rate 73 06/23/17 18:50 Respiratory Rate 18 06/23/17 18:50 Blood Pressure 172/89 06/23/17 18:50 O2 Sat by Pulse Oximetry 96 06/23/17 18:50 Temperature 98.2 F 06/23/17 23:52 Pulse Rate 67 06/23/17 23:52 Respiratory Rate 12 06/23/17 23:52 Blood Pressure 147/74 06/23/17 23:52 O2 Sat by Pulse Oximetry 97 06/23/17 23:52 Oxygen Delivery Oxygen Delivery Room Air Medical Decision Making - [facility] Narrative Medical decision making narrative: Patient presents with an isolated episode of hemoptysis. Patient does have a recent hospitalization related to low sodium levels. On exam the patient is in no acute distress. Patient's not on any blood thinners. Patient does not have any risk factors for PE. 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 Patient's CT of the chest shows a mediastinal mass concerning for malignancy. Patient's sodium level was 123. Patient does have urine sodium electrolytes pending however the patient's fluid status appears to be euvolemic. Patient will require admission to the hospital service for further management of her sodium levels was hemoptysis and workup of presumed malignancy. - Lab Data Lab results reviewed: Yes I reviewed the patient's lab results. Result diagrams: 06/23/17 19:50 06/23/17 19:50 Lab Results 06/23/17 06/23/17 06/23/17 Range/Units 19:50 19:50 19:50 WBC 9.3 (4.3-11.1) K/mcL RBC 4.13 (3.82-4.97) M/mcL Hgb 12.2 (11.5-15.4) g/dL Hct 35.2 L (35.3-44.9) % MCV 85.2 (83.0-100.0) fL MCH 29.5 (28.0-33.3) pg MCHC 34.7 (31.6-35.5) g/dL RDW 11.5 (11.5-14.5) % Plt Count 395 (140-400) K/mcL MPV 9.6 (9.4-12.4) fL Immature Gran % 0.6 (0-4) % Seg Neutrophils % 61.0 % Lymphocytes % 26.5 % Monocytes % 9.2 % Eosinophils % 2.1 % Basophils % 0.6 % Neutrophils # 5.7 (1.6-8.9) K/mcL Lymphocytes # 2.5 (0.6-4.6) K/mcL Monocytes # 0.9 (0.0-1.3) K/mcL Eosinophils # 0.2 (0.0-0.6) K/mcL Basophils # 0.1 (0.0-0.2) K/mcL PT 10.9 (9.4-12.1) Seconds INR 1.0 APTT 32.7 (26.0-36.0) Seconds Sodium 123 L (136-145) mEq/L Potassium 3.9 (3.5-5.1) mEq/L Chloride 90 L (98-107) mEq/L Carbon Dioxide 28 (23-29) mEq/L BUN 8 (8-23) mg/dL Creatinine 0.59 L (0.60-1.20) mg/dL Est GFR ( Amer) > 60 (> 60) Est GFR (Non-Af Amer) > 60 (> 60) BUN/Creatinine Ratio 14 (6-26) Glucose 97 (70-105) mg/dL Calculated Osmolality 254 L (280-300) Calcium 9.2 (8.6-10.3) mg/dL TSH 4.984 (0.340-5.600) mcIU/mL Urine Color (Yellow) Urine Clarity (Clear) Urine pH (5.0-8.0) pH Units Ur Specific [place] (1.010-1.025) Urine Protein (Neg-Trace) mg/dL Urine Glucose (UA) (Normal) mg/dL Urine Ketones (Negative) mg/dL Urine Blood (Negative) Urine Nitrite (Negative) Urine Bilirubin (Negative) Urine Urobilinogen (Normal) mg/dL Ur Leukocyte Esterase (Negative) Urine Microscopic RBC (0-3) per hpf Urine Microscopic WBC (0-3) per hpf Ur Squamous Epith Cells (None-Few) per lpf Urine Bacteria (None-Few) per hpf Hyaline Casts (None-Few) per lpf Urine Creatinine mg/dL Urine Sodium mEq/L 06/23/17 06/23/17 Range/Units 20:40 22:26 WBC (4.3-11.1) K/mcL RBC (3.82-4.97) M/mcL Hgb (11.5-15.4) g/dL Hct (35.3-44.9) % MCV (83.0-100.0) fL MCH (28.0-33.3) pg MCHC (31.6-35.5) g/dL RDW (11.5-14.5) % Plt Count (140-400) K/mcL MPV (9.4-12.4) fL Immature Gran % (0-4) % Seg Neutrophils % % Lymphocytes % % Monocytes % % Eosinophils % % Basophils % % Neutrophils # (1.6-8.9) K/mcL Lymphocytes # (0.6-4.6) K/mcL Monocytes # (0.0-1.3) K/mcL Eosinophils # (0.0-0.6) K/mcL Basophils # (0.0-0.2) K/mcL PT (9.4-12.1) Seconds INR APTT (26.0-36.0) Seconds Sodium (136-145) mEq/L Potassium (3.5-5.1) mEq/L Chloride (98-107) mEq/L Carbon Dioxide (23-29) mEq/L BUN (8-23) mg/dL Creatinine (0.60-1.20) mg/dL Est GFR ( Amer) (> 60) Est GFR (Non-Af Amer) (> 60) BUN/Creatinine Ratio (6-26) Glucose (70-105) mg/dL Calculated Osmolality (280-300) Calcium (8.6-10.3) mg/dL TSH (0.340-5.600) mcIU/mL Urine Color Yellow (Yellow) Urine Clarity Clear (Clear) Urine pH 6.5 (5.0-8.0) pH Units Ur Specific [place] > 1.030 H (1.010-1.025) Urine Protein 100 H (Neg-Trace) mg/dL Urine Glucose (UA) Normal (Normal) mg/dL Urine Ketones Negative (Negative) mg/dL Urine Blood Negative (Negative) Urine Nitrite Negative (Negative) Urine Bilirubin Negative (Negative) Urine Urobilinogen Normal (Normal) mg/dL Ur Leukocyte Esterase Negative (Negative) Urine Microscopic RBC 0-3 (0-3) per hpf Urine Microscopic WBC 5-15 H (0-3) per hpf Ur Squamous Epith Cells Few (None-Few) per lpf Urine Bacteria None Seen (None-Few) per hpf Hyaline Casts None Seen (None-Few) per lpf Urine Creatinine 95 mg/dL Urine Sodium 93.1 mEq/L - Radiology Data Radiology results reviewed: Yes I reviewed the patient's radiology results. Chest X-Ray 06/23/17 18:56 IMPRESSION: Right paratracheal mass with possible right suprahilar mass as well. A chest CT is suggested for further evaluation. D/ / José Catalan MD / José Catalan MD Interpreting Provider: José Catalan MD Chest CTA 06/23/17 20:07 IMPRESSION: 1. No evidence of pulmonary embolic disease. 2. Bulky mediastinal and right hilar adenopathy with right suprahilar mass or node. The findings are most consistent with a lung cancer until proven otherwise. Multiple small nodules within the right upper lobe. The findings are concerning for lymphangitic tumor, although the appearance is not typical. 3. No other acute pulmonary findings. D/ / 06/23/2017 21:19:35 Junaid Hobbs MD / eliceo Interpreting Provider: Junaid Hobbs MD - EKG Data EKG #1 EKG attestation: Yes I reviewed and interpreted this EKG. EKG shows normal: sinus rhythm Rate: normal Rhythm: NSR [place]/QRS: normal Interpretation: no acute changes S.B.A.R. - S.B.A.RSandra Situation: Demographics Background: Presenting Complaint Assessment: Vital Signs, Course and respsone to treatment, Patient/Family Expectation Recommendation: Barrier(s) to disposition, Recommendation based on pending studies, treatments, or consults S.B.A.RSandra Report Given to: Dr. De Oliveira SSandraBSandraADe Repor Time: 23:03 Attestation Statement - Attestation Attestation: I, Anuj Leach DO, examined this patient [id number] and my medical decision-making was reviewed with Dr. Santi Orozco, Resident Physician. I agree with the documented findings, disposition and treatment plan as described except to the extent set forth below. Please see my progress notes for details. 71-year-old female presents emergency room with a complaint of coughing up blood. Patient woke up from a nap at several episodes of coughing and noticed some blood-tinged sputum. Patient denies any significant recent illness. Denies chest pain shortness of breath fevers chills nausea vomiting or diarrhea. Denies any headache or vision change. No other acute concerns or issues noted this time. Vital signs are remained stable. Patient has a significant smoking history as well as concerns for lab abnormality. Patient was brought back to our pod with labs are to be in place. CT angiography was ordered secondary the patient's history as well as the coughing episodes and hyponatremia. Patient found to have mediastinal mass concerning for cancerous neoplasm at this point. 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 Discussed with the patient lying at the bedside. Patient will be admitted for definitive management in establishing her care for possible neoplastic presentation. Patient family are comfortable with this plan. No critical care applied. Physical exam is otherwise unremarkable lungs are clear heart is regular abdomen is soft. Vital signs remain unremarkable in emergency room. Patient will be admitted for definitive management. Patient is otherwise stable. See detailed documentation of the physical exam, medical intervention, medical decision-making and disposition of resident physician's note Patient is admitted to the hospital for hyponatremia pulmonary nodules. Patient is otherwise stable. Admission process completed this point. No other acute issues noted at this time. Patient is symptom-free
[2017-06-23 20:20] LABS: BUN/Creatinine Ratio 14 (6-26); Blood Urea Nitrogen 8 mg/dL (8-23); Calcium 9.2 mg/dL (8.6-10.3); Carbon Dioxide 28 mEq/L (23-29); Chloride 90 mEq/L (98-107); Glucose 97 mg/dL (70-105); Osmolality,Calculated 254 (280-300); Potassium 3.9 mEq/L (3.5-5.1); Sodium 123 mEq/L (136-145); eGFR For African Americans > 60 (> 60); eGFR For Non-African Americans > 60 (> 60)
[2017-06-23 20:56] LABS: Thyroid Stimulating Hormone 4.984 mcIU/mL (0.340-5.600)
[2017-06-23 21:07] LABS: Sodium, Urine 93.1 mEq/L
[2017-06-23 23:01] LABS: Bilirubin,Urine Negative (Negative); Blood,Urine Negative (Negative); Clarity,Urine Clear (Clear); Color,Urine Yellow (Yellow); Glucose,Urine (UA) Normal (Normal); Ketones,Urine Negative (Negative); Leukocyte Esterase,Urine Negative (Negative); Nitrite,Urine Negative (Negative); PH,Urine 6.5 pH Units (5.0-8.0); Protein,Urine 100 mg/dL (Neg-Trace); Specific Gravity,Urine > 1.030 (1.010-1.025); Urobilinogen,Urine Normal (Normal)
[2017-06-23 23:03] LABS: Bacteria,Urine None Seen per hpf (None-Few); Hyaline Casts,Urine None Seen per lpf (None-Few); RBC,Urine 0-3 per hpf (0-3); Squamous Epithelial Cell,Urine Few per lpf (None-Few)
[2017-06-23 23:22] LABS: Prothrombin Time 10.9 Seconds (9.4-12.1)
[2017-06-23 23:25] LABS: Activated Partial Thrombo Time 32.7 Seconds (26.0-36.0)
[2017-06-24] MEDS ORDERED: traMADol 50 MG TABLET PO PRN (02:51)
[2017-06-24] MEDS ORDERED: Acetaminophen 325 MG TABLET PO PRN (02:51)
[2017-06-24] MEDS ORDERED: Naloxone 0.4 MG/ML INJ IVP PRN (02:51)
--- NOTE | 2017-06-24 03:04 | Internal Med History&Physical ---
Date of Encounter: 06/24/17 Time of Encounter: 02:05 Assessment and Plan (1) Hemoptysis Current visit: Yes Status: Acute 1. Will monitor clinically and follow hemoglobin/hematocrit. 2. No significant blood loss noted and/or anemia. 3. If she develops gross hemoptysis, she may need ETT for airway protection. 4. No sign of respiratory distress at this time. (2) Mediastinal mass Current visit: Yes Status: Acute 1. Will consult pulmonary adn oncology as she will need biopsy -- either transbronchial (bronchoscopy) or CT-guided. 2. Patient expressed interest in second opinion after biopsy obtained. 3. Patient advised to discuss with Pulmonary and oncology as well as her PCP. (3) Hyponatremia Current visit: Yes Status: Chronic 1. 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 2. Will monitor daily serum sodium. 3. Lung cancer work-up in progress. (4) DVT prophylaxis Current visit: No Status: Acute 1. EPCD's. 2. No anti-coagulation due to hemoptysis. Internal Medicine - H&P: HPI Chief complaint: hemoptysis Admitted From: Emergency Dept Plans for Post Hospital Care: Home History of present illness: Ms. Scruggs is a 71 year old female who presents with a 2 day history of hemoptysis following a prolonged course of bronchitis and sinusitis. She was treated with antibiotics and had improved. However, she noticed hemoptysis twice yesterday and then tonight/this morning she another episode after being admitted from the ER. Workup in ER revealed patient to have a suprahilar mass on her right side on CT imaging. She also is hyponatremic and euvolemic. Given these clinical findings and radiographic imaging, there is a strong suspicion this is lung cancer. She was therefore admitted to the hospitalist service for diagnostic workup and monitoring and treatment of her hyponatremia. Upon my assessment of the patient, she is in no distress. is present at bedside, and I discussed with both of them at length. Patient is a long- time smoker who recently quit smoking a few weeks ago during her last admission for hyponatremia. She denies any unexplained fevers, but she has had some weight loss. She has lost about 20 pounds in the last 4 months. However, she has been trying to lose weight and has been eating healthier since January 2017. Nonetheless, she has lost more weight than she can account for by her diet and lifestyle modifications. I explained to her and her the likelihood that this is probably lung cancer and that we need to move forward with diagnostic workup. She is agreeable to pulmonary and oncology consultation and biopsy either by bronchoscopy or CT guidance. However, she expressed interest in likely pursuing a second or third opinion at another facility once the biopsy results are available. I encouraged her to discuss this with pulmonology and oncology later today while we pursue a diagnostic workup. She and her are both very agreeable to my plan and recommendation. Past Med Surg Social Fam HX - Past Medical History Attestation: Yes The following information was validated with the patient. Source: patient, old records reviewed, obtained from family Medical history: arthritis, hyperlipidemia, hypertension, thyroid disease Psychiatric history: no psych history - Past Surgical History Surgical History: appendectomy - Social History Smoking Status: Former smoker (quit 2 weeks ago) Smokeless Tobacco Status: No Alcohol use: none Drug use: none Current living situation: Home, With Family Activity Level: Independent ambulation Recent Out of Country Travel Within the Last 8 Weeks: No - Family History Brother Hx Family Cardiac Disorders: Yes Hx Family Endocrine Disorder: Yes Father Living Status: Hx Family Respiratory Disorders: Yes (COPD) Mother Living Status: Hx Family Respiratory Disorders: No Internal Medicine - H&P: Meds Levothyroxine Sodium [Levoxyl] 50 mcg PO QAM 06/10/17 [History] Metoprolol XL (24 HR) Succ [Toprol Xl] 25 mg PO DAILY 06/10/17 [History] [place]-3/Dha/Epa/Fish Oil [Fish Oil 1,000 mg Softgel] 2 cap PO BID 06/10/17 [ History] Simvastatin [Zocor] 40 mg PO QPM 06/10/17 [History] Omeprazole [PriLOSEC] 40 mg PO BIDAC #60 capsule. 06/13/17 [Rx] 3 Allergy/AdvReac Type Severity Reaction Status Date / Time Amoxicillin [From Augmentin] Allergy Rash Verified 06/10/17 07:56 peace Allergy Rash Verified 06/10/17 07:56 clavulanic acid Allergy Rash Verified 06/10/17 07:56 [From Augmentin] diazepam Allergy Rash Verified 06/10/17 07:56 egg Allergy Rash Verified 06/10/17 07:56 ibuprofen Allergy Rash Verified 06/10/17 07:56 peanut Allergy Anaphylaxis Verified 06/10/17 07:56 Penicillins Allergy Rash Verified 06/10/17 07:56 Cyclobenzaprine AdvReac Numbness Verified 06/10/17 09:31 prednisone AdvReac Gastrointestinal Verified 06/10/17 09:31 Upset metals Allergy Rash Uncoded 06/10/17 07:56 - Constitutional Constitutional: fatigue, weight loss, no chills, no fever(s), no night sweats - EENT Eyes: no blurry vision, no change in vision Ears: no ear pain, no tinnitus Nose, mouth and throat: post-nasal drip, sinus pressure, no epistaxis, no nasal congestion, no nasal discharge, no sore throat - Cardiovascular Cardiovascular ROS IM: no chest pain, no dyspnea, no dyspnea on exertion, no edema, no lightheadedness, no orthopnea, no palpitations, no paroxysmal nocturnal dyspnea, no syncope - Respiratory Respiratory: cough, hemoptysis, no dyspnea, no dyspnea on exertion, no wheezing , no chest congestion, no excessive phlegm production, no change in phlegm color , no pain with cough - Gastrointestinal Gastrointestinal: no abdominal pain, no diarrhea, no hematemesis, no hematochezia, no melena, no nausea, no vomiting - Genitourinary Genitourinary: no dysuria, no flank pain, no hematuria - Musculoskeletal Musculoskeletal ROS IM: no arthralgias, no back pain - Integumentary Integumentary IM: no rash, no jaundice - Neurological Neurological ROS: no dizziness, no focal weakness, no frequent falls, no headache(s), no weakness - Psychiatric Psychiatric: no anxiety, no depression - Endocrine Endocrine IM: no cold intolerance, no heat intolerance, no polydipsia, no polyuria - Hematologic/Lymphatic Hematologic/Lymphatic: no lymphadenopathy - Allergic/Immunologic Allergic/Immunologic: no wheezing, no GI upset with certain foods - Constitutional Vitals: Temp Pulse Resp BP Pulse Ox 98.2 F 67 12 147/74 97 06/23/17 23:52 06/23/17 23:52 06/23/17 23:52 06/23/17 23:52 06/23/17 23:52 General appearance: Present: cooperative, A&O X 3, pleasant, no acute distress, answers questions appropriately - Head Head exam: Present: atraumatic, normal inspection - Eye Eye exam: Present: EOMI, PERRL. Absent: scleral icterus Pupils: Present: normal accommodation - ENT ENT exam: Present: mucous membranes dry, normal exam, normal oropharynx Additional comments: no postnasal drip or bloody nasal discharge appreciated - Neck Neck exam general surgery: Present: full ROM, supple. Absent: lymphadenopathy, tenderness, nuchal rigidity, thyromegaly - Respiratory Respiratory exam: Present: CTAB. Absent: accessory muscle use, chest wall tenderness, rales, respiratory distress, rhonchi, wheezes - Cardiovascular Cardiovascular exam: Present: RRR, +S1, +S2. Absent: diastolic murmur, JVD, systolic murmur - GI/Abdominal GI/Abdominal exam: Present: normal bowel sounds, soft. Absent: hepatomegaly, mass, rebound, splenomegaly, tenderness - Extremities Exam Extremities exam: Present: full ROM, normal capillary refill, warm, radial pulses palpable and symmetrical. Absent: calf tenderness, joint swelling, pedal edema, tenderness - Back Exam Back exam: Absent: CVA tenderness (L), CVA tenderness (R) - Neurological Exam Neurological exam: Present: alert, CN II-XII intact, oriented X3, no focal deficits - Psychiatric Psychiatric exam: Present: anxious, normal affect - Skin Skin exam: Present: dry, warm. Absent: rash Internal Med - H&P Results - Labs CBC & Chem 7: 06/23/17 19:50 06/23/17 19:50 - Diagnostic Studies CT scan - chest Status: image reviewed by me (right suprhilar mass noted)
[2017-06-24] MEDS: Ipratropium/Albuterol Neb 3 ML IH SCH ×6 (04:24→23:06)
[2017-06-24 06:41] LABS: Basophils # 0.1 K/mcL (0.0-0.2); Basophils % 0.7 %; Eosinophils # 0.1 K/mcL (0.0-0.6); Eosinophils % 1.6 %; Hematocrit 33.5 % (35.3-44.9); Hemoglobin 11.5 g/dL (11.5-15.4); Immature Granulocytes % 0.6 % (0-4); Lymphocytes # 1.7 K/mcL (0.6-4.6); Lymphocytes % 24.9 %; Mean Corpuscular HGB Conc 34.3 g/dL (31.6-35.5); Mean Corpuscular Hemoglobin 29.9 pg (28.0-33.3); Mean Platelet Volume 10.1 fL (9.4-12.4); Monocytes # 0.6 K/mcL (0.0-1.3); Monocytes % 9.1 %; Neutrophils # 4.2 K/mcL (1.6-8.9); Nucleated Red Blood Cells 0.4 /100 WBC (0); Platelet Count 309 K/mcL (140-400); Red Blood Count 3.85 M/mcL (3.82-4.97); Red Cell Distribution Width 11.7 % (11.5-14.5); Segmented Neutrophils % 63.1 %
[2017-06-24 09:22] LABS: Alanine Aminotransferase 12 Units/L (7-52); Albumin 3.8 g/dL (3.5-5.7); Albumin/Globulin Ratio 1.5 (1.1-2.2); Alkaline Phosphatase 93 Units/L (34-104); Aspartate Amino Transferase 17 Units/L (13-39); BUN/Creatinine Ratio 11 (6-26); Bilirubin,Total 0.5 mg/dL (0.3-1.0); Blood Urea Nitrogen 7 mg/dL (8-23); Calcium 9.3 mg/dL (8.6-10.3); Carbon Dioxide 28 mEq/L (23-29); Chloride 92 mEq/L (98-107); Globulin 2.6 g/dL (2.4-3.5); Glucose 87 mg/dL (70-105); Osmolality,Calculated 259 (280-300); Potassium 4.2 mEq/L (3.5-5.1); Sodium 126 mEq/L (136-145); Total Protein 6.4 g/dL (6.4-8.9); eGFR For African Americans > 60 (> 60); eGFR For Non-African Americans > 60 (> 60)
[2017-06-24] MEDS: Metoprolol XL (24 HR) Succ 25 MG TAB.ER.24H PO SCH (09:55)
--- NOTE | 2017-06-24 09:59 | Pulmonology Consult Note ---
Date of Encounter: 06/24/17 Time of Encounter: 07:00 Assessment and Plan (1) COPD exacerbation Current Visit: Yes Status: Acute Patient recovering from COPD exacerbation will give duonebs , to give Doxycycline 100 mg IV bid to finish the total course of 5-7 days . Will prednisone 40 mg PO OD of 5 days . Will optimize pulmonary status before Endobronchial ultrsound with biopsy. (2) Hemoptysis Current Visit: Yes Status: Acute Patient has mimimal hemoptysis can due to chronic bronchitis vs Endobronchial lesion will monitor if worsens will pursue with Bronchoscopy . (3) Lung mass Current Visit: Yes Status: Acute Patient has extensive smoking history with Suprahilar mass with hilar LN with some mediastinal LN will need EBUS staging and biopsy of suprahilar mass amenable TBNA with EBUS will wait for her airway inflammation settle will optimize with steroids will pursue with EBUS under [place] on Wednesday With the procedure has been arranged patient agrees with the plan . History of Present Illness Consult date: 06/24/17 Requesting physician: Dustin De Oliveira Reason for consult: lung mass Chief complaint: Cough with sputum production and blood History of present illness: 71 year old female with chronic smoker smoking till 2 weeks ago stopped after last admission for work up of hyonatremia probably she has undiagnosed COPD no PFT'S on file , had 3 weeks of COPD exacerbation with sinusitis , had some cough with sputum production now 2 days she had hemoptysis CT scan showed Suprahilar mass and right sided mediastinal lymphadenopathy ,denies any chest pain or tightness , denies any head ache or any other focal neurological deficits . Pulmonary was consulted for evaluation of the suprahilar mass. Past Med Surg Social Fam HX - Past Medical History Medical history: arthritis, hyperlipidemia, hypertension, thyroid disease Psychiatric history: no psych history - Past Surgical History Surgical History: appendectomy - Social History Smoking Status: Former smoker (quit 2 weeks ago) Smokeless Tobacco Status: No Alcohol use: none Drug use: none - Family History Brother Hx Family Cardiac Disorders: Yes Hx Family Endocrine Disorder: Yes Father Living Status: Hx Family Respiratory Disorders: Yes (COPD) Mother Living Status: Hx Family Respiratory Disorders: No Medications and Allergies Levothyroxine Sodium [Levoxyl] 50 mcg PO QAM 06/10/17 [History] Metoprolol XL (24 HR) Succ [Toprol Xl] 25 mg PO DAILY 06/10/17 [History] [place]-3/Dha/Epa/Fish Oil [Fish Oil 1,000 mg Softgel] 2 cap PO BID 06/10/17 [ History] Simvastatin [Zocor] 40 mg PO QPM 06/10/17 [History] Omeprazole [PriLOSEC] 40 mg PO BIDAC #60 capsule. 06/13/17 [Rx] 3 Allergy/AdvReac Type Severity Reaction Status Date / Time Amoxicillin [From Augmentin] Allergy Rash Verified 06/10/17 07:56 peace Allergy Rash Verified 06/10/17 07:56 clavulanic acid Allergy Rash Verified 06/10/17 07:56 [From Augmentin] diazepam Allergy Rash Verified 06/10/17 07:56 egg Allergy Rash Verified 06/10/17 07:56 ibuprofen Allergy Rash Verified 06/10/17 07:56 peanut Allergy Anaphylaxis Verified 06/10/17 07:56 Penicillins Allergy Rash Verified 06/10/17 07:56 Cyclobenzaprine AdvReac Numbness Verified 06/10/17 09:31 prednisone AdvReac Gastrointestinal Verified 06/10/17 09:31 Upset metals Allergy Rash Uncoded 06/10/17 07:56 All Systems: All other review of symptoms were reviewed found to be negative . Physical Examination Vital Signs: Vital Signs, Last 4 Hours Temp Pulse Resp BP Pulse Ox 06/24/17 07:42 16 96 06/24/17 07:02 97.6 F 66 18 145/82 96 Auscultation: bilateral: wheezes Results - Laboratory Findings CBC and BMP: 06/24/17 06:19 06/24/17 07:48 PT/INR, D-dimer PT 10.9 Seconds (9.4-12.1) 06/23/17 19:50 Abnormal lab findings: Abnormal lab results Hct 33.5 % (35.3-44.9) L 06/24/17 06:19 Nucleated RBCs/100 WBC 0.4 /100 WBC (0) H 06/24/17 06:19 Sodium 126 mEq/L (136-145) L 06/24/17 07:48 Chloride 92 mEq/L (98-107) L 06/24/17 07:48 BUN 7 mg/dL (8-23) L 06/24/17 07:48 Calculated Osmolality 259 (280-300) L 06/24/17 07:48 Ur Specific [place] > 1.030 (1.010-1.025) H 06/23/17 22:26 Urine Protein 100 mg/dL (Neg-Trace) H 06/23/17 22:26 Urine Microscopic WBC 5-15 per hpf (0-3) H 06/23/17 22:26 - Clinical Findings Intake & Output: Intake & Output 06/23/17 06/24/17 06/24/17 23:59 07:59 15:59 Weight 81.42 kg Consult Discharge Plan - Plan Referrals: Scott Shine DO [Primary Care Provider] - 07/01/17 2:15 pm (Please follow up as schedule...)
--- NOTE | 2017-06-24 11:00 | Event Note ---
Date of Encounter: 06/24/17 Time of Encounter: 09:30 Patient feeling better today. No new episodes of hemoptysis. Shortness of breath is improving. Pulmonology consult appreciated and follow recommendations. Continue doxycycline and prednisone. Plan for bronchoscopy as outpatient.
[2017-06-24] MEDS: predniSONE 20 MG TABLET PO SCH (13:02)
--- NOTE | 2017-06-24 15:19 | Electrocardiograph Report ---
[address] [place] [address] Test Date: 2017-06-23 Pat Name: Kalie Scruggs Department: 103 Room: [facility] Gender: F Incident Response Specialist: : 1945 Requested By: Santi Orozco Order Number: [id number] Reading MD: Maribeth Pinedo Measurements Intervals [place] Rate: 66 P: 62 [place]: 198 QRS: 46 QRSD: 85 T: 49 QT: 410 QTc: 424 Interpretive Statements SINUS RHYTHM Electronically Signed On 06-24-2017 15:17:34 EST by Maribeth Pinedo
[2017-06-24] MEDS: Doxycycline 100 MG in 0.9 % Sodium Chloride Mini Bag 100 ML IVPB SCH (17:17)
[2017-06-24] MEDS ORDERED: Doxycycline 200 MG in 0.9 % Sodium Chloride 250 ML IVPB SCH (18:00)
[2017-06-25] MEDS: Ipratropium/Albuterol Neb 3 ML IH SCH ×3 (03:31→12:09)
[2017-06-25] MEDS: Doxycycline 100 MG in 0.9 % Sodium Chloride Mini Bag 100 ML IVPB SCH (06:32)
[2017-06-25 07:47] LABS: Basophils % 0.3 %; Eosinophils # 0.1 K/mcL (0.0-0.6); Eosinophils % 0.7 %; Hematocrit 32.1 % (35.3-44.9); Hemoglobin 11.4 g/dL (11.5-15.4); Immature Granulocytes % 0.5 % (0-4); Lymphocytes # 1.9 K/mcL (0.6-4.6); Lymphocytes % 19.8 %; Mean Corpuscular HGB Conc 35.5 g/dL (31.6-35.5); Mean Corpuscular Hemoglobin 30.1 pg (28.0-33.3); Mean Corpuscular Volume 84.7 fL (83.0-100.0); Mean Platelet Volume 9.4 fL (9.4-12.4); Monocytes # 0.7 K/mcL (0.0-1.3); Monocytes % 6.7 %; Platelet Count 373 K/mcL (140-400); Red Blood Count 3.79 M/mcL (3.82-4.97); Red Cell Distribution Width 11.5 % (11.5-14.5)
[2017-06-25] MEDS: predniSONE 20 MG TABLET PO SCH (07:55)
[2017-06-25] MEDS: Metoprolol XL (24 HR) Succ 25 MG TAB.ER.24H PO SCH (07:56)
[2017-06-25 08:23] LABS: BUN/Creatinine Ratio 15 (6-26); Blood Urea Nitrogen 9 mg/dL (8-23); Calcium 9.5 mg/dL (8.6-10.3); Carbon Dioxide 26 mEq/L (23-29); Chloride 89 mEq/L (98-107); Glucose 106 mg/dL (70-105); Osmolality,Calculated 257 (280-300); Potassium 3.9 mEq/L (3.5-5.1); Sodium 124 mEq/L (136-145); eGFR For African Americans > 60 (> 60); eGFR For Non-African Americans > 60 (> 60)
--- NOTE | 2017-06-25 11:23 | Discharge Summary ---
- NOTES TO OUTPATIENT PROVIDER Notes to Outpatient Provider: CT/CT angio chest. IMPRESSION : 1. No evidence of pulmonary embolic disease. 2. Bulky mediastinal and right hilar adenopathy with right suprahilar mass or. node. The findings are most consistent with a lung cancer until proven. otherwise. Multiple small nodules within the right upper lobe. The findings. are concerning for lymphangitic tumor, although the appearance is not typical. Date of Encounter: 06/25/17 Time of Encounter: 11:20 - Discharge Diagnosis (1) Hemoptysis Priority: Primary Status: Resolved (2) Mediastinal mass Priority: Secondary Status: Acute (3) HTN (hypertension) Priority: Secondary Status: Chronic Qualifiers: Hypertension type: essential hypertension Qualified Code(s): I10 - Essential (primary) hypertension (4) DVT prophylaxis Priority: Secondary Status: Acute Hospital course: Ms. Scruggs is a 71 year old female patient with history of hyponatremia recently hospitalized for abdominal pain along with nausea and vomiting and presented to the ER with complaints of cough with sputum production and hemoptysis. CT scan done in the ER showed suprahilar mass and right-sided mediastinal lymphadenopathy. Patient also had multiple small nodules in the right upper lobe. Pulmonology and oncology were consultation. Pulmonology recommended endobronchial ultrasound-guided biopsy. They recommended this be done as outpatient after patient's acute bronchitis symptoms resolved. Oncology recommended transfer of patient to a tertiary care center to see if they can do a biopsy at an earlier date but patient wished to undergo the procedure here and it has been scheduled for 06/29. Patient's symptoms of hemoptysis have not subsided. She will complete antibiotic course of doxycycline and follow up for the procedure next week. She has also been scheduled for a PET CT scan and oncology and radiation oncology follow-up after the procedure. 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 She has been placed on free water restriction and oral salt tablets to help with her hyponatremia. She will have her basic panel rechecked next week. Discharge discussed with: patient, domestic travel consultant - Time Spent with Patient Total time spent providing and/or coordinating discharge services: Greater than 30 minutes (32 min) - Discharge Medications Prescriptions: Albuterol Sulfate [Albuterol Inhaler] 2 puff IH Q4HR PRN #1 hfa.aer.ad PRN Reason: Shortness Of Breath Doxycycline 100 mg PO BID #14 capsule predniSONE [PredniSONE] 10 mg PO DAILY 6 Days tablet Sodium Chloride 1 gm PO BID #60 tablet Home Medications: Levothyroxine Sodium [Levoxyl] 50 mcg PO QAM 06/10/17 [History] Metoprolol XL (24 HR) Succ [Toprol Xl] 25 mg PO DAILY 06/10/17 [History] [place]-3/Dha/Epa/Fish Oil [Fish Oil 1,000 mg Softgel] 2 cap PO BID 06/10/17 [ History] Simvastatin [Zocor] 40 mg PO QPM 06/10/17 [History] Omeprazole [PriLOSEC] 40 mg PO BIDAC #60 capsule. 06/13/17 [Rx] Albuterol Sulfate [Albuterol Inhaler] 2 puff IH Q4HR PRN #1 hfa.aer.ad 06/25/17 [Rx] Doxycycline 100 mg PO BID #14 capsule 06/25/17 [Rx] Sodium Chloride 1 gm PO BID #60 tablet 06/25/17 [Rx] predniSONE [PredniSONE] 10 mg PO DAILY 6 Days tablet 06/25/17 [Rx] Allergies/Adverse Reactions: 3 Allergy/AdvReac Type Severity Reaction Status Date / Time Amoxicillin [From Augmentin] Allergy Rash Verified 06/10/17 07:56 peace Allergy Rash Verified 06/10/17 07:56 clavulanic acid Allergy Rash Verified 06/10/17 07:56 [From Augmentin] diazepam Allergy Rash Verified 06/10/17 07:56 egg Allergy Rash Verified 06/10/17 07:56 ibuprofen Allergy Rash Verified 06/10/17 07:56 peanut Allergy Anaphylaxis Verified 06/10/17 07:56 Penicillins Allergy Rash Verified 06/10/17 07:56 Cyclobenzaprine AdvReac Numbness Verified 06/10/17 09:31 prednisone AdvReac Gastrointestinal Verified 06/10/17 09:31 Upset metals Allergy Rash Uncoded 06/10/17 07:56 Date of admission: 06/23/17 23:16 Primary care physician: Harley Edwards Consults: 06/24/17 02:51 Consult to Oncology Hematology [CONS] Routine Consulting Provider: Gee Duran Reason for Consult: lung mass; likely lung CA Call Completed: No 06/24/17 02:53 Consult to Physician [CONS] Routine Consulting Provider: Nina Medina Reason for Consult: hemoptysis; lung mass; needs biopsy -- tbbx vs ct guidance Call Completed: No 06/24/17 11:32 Consult to Interventional Radiology [CONS] Routine Consulting Provider: Radiology Interventional Cols Reason for Consult: lymphadenopathy, possible SCLC. Need core needle bx of LN. Call Completed: No Discharging clinician: Olivia Meza Anticipated date of discharge: 06/25/17 - Constitutional Vitals: Temp Pulse Resp BP Pulse Ox 98.0 F 75 16 149/83 97 06/25/17 07:30 06/25/17 07:30 06/25/17 07:46 06/25/17 07:30 06/25/17 07:46 General appearance: Present: cooperative, A&O X 3, pleasant, no acute distress, answers questions appropriately - Neck Neck exam general surgery: Present: supple, trachea midline. Absent: lymphadenopathy - Respiratory Respiratory exam: Present: CTAB, prolonged expiratory phase. Absent: accessory muscle use, rales, rhonchi, wheezes - GI/Abdominal GI/Abdominal exam: Present: normal bowel sounds, soft, no peritoneal signs. Absent: distended, tenderness - Extremities Exam Extremities exam: Present: warm, radial pulses palpable and symmetrical. Absent : calf tenderness, cyanotic, pedal edema - Patient Status Disposition: Home, Self-Care Condition: Good Functional capacity at discharge: independent ambulation Overall status at discharge: patient is progressing back to baseline - Ambulatory Orders Ambulatory Orders: Basic Metabolic Panel [CHEM] Time Frame: 1 Week, Facility: [facility], Location: Lab - Discharge Instructions Instructions: Doxycycline (By mouth), Albuterol (By breathing), Prednisone (By mouth), Chronic Obstructive Pulmonary Disease (DC) Follow Up With: Gee Duran [Non-Partnered Physician] - 07/02/17 11:35 am Nina Medina MD [Partnered Physician] - 06/29/17 ( Bronchoscopy on 06/29- Please call Wednesday if you have not heard anything about what time to arrive) Scott Shine DO [Primary Care Provider] - 07/01/17 2:15 pm (Please follow up as schedule...) - Diet and Activity Activity: resume usual activities as tolerated Diet: low fat, low cholesterol, other (Free water restriction to 1.5 L per 24 hours)
[2017-06-25 11:34] VITALS: BP 148/78
--- NOTE | 2017-06-25 13:00 | Oncology Inp Consult Note ---
<Mimi Bae L - Last Filed: 06/25/17 15:17> Date of Encounter: 06/25/17 Time of Encounter: 12:58 Assessment and Plan (1) Lung mass Status: Acute Assessment and plan: CTA revealed Bulky mediastinal and right hilar adenopathy with right suprahilar mass or node. CT abdomen/pelvis does not show sign of metastatic disease. Reviewed pulmonology recommendations-she is planned for EBUS with suprahilar mass biopsy on 06/29/17 as an outpatient. She will be planned for PET on 2017. She is planned to follow up with medical oncology- Dr. Crook, and radiation oncology for consult/SIM-Dr. Palacios on 07/02/2017. Dr. Duran discussed radiographic findings highly suggestive for primary lung malignancy with patient and patients spouse. CTA images and hyponatremia suggestive of small cell lung cancer, although not definitive until pathology proven. Hyponatremia- Na 124. Agree with continued fluid restrictions. K, glucose, LDH and kidney function normal. no contributing medications. Serum os low, urine grav high. AJCC staging to be determined following completion of staging work up. Treatment options per NCCN guidelines to be discussed following final pathology results. Patient will have appointments arranged next week as discussed above. Please refer to Dr. Duran's attestation below for further details. - Data of Consult Patient: new to practice Consult date: 06/25/17 Requesting Physician: Olivia Meza MD Primary Care Provider: Harley Edwards - Consult Narrative Reason for consult: Bulky mediastinal and right hilar adenopathy with right suprahilar mass History of present illness: Ms. Scruggs is a 71 year old female with past medical history significant for HTN , hyperlipidemia and hypothyroidism. Patient resented to PCP in in January 2017 for routine follow up with incidental finding of hyponatremia with sodium level 128. According to the patient she was instructed to consume salt freely and had continued laboratory follow up. In early June she began to experience worsening midsternal pain and epigastric pain which led to her presentation to ER June 10. CT abdomen/pelvis with no acute findings, patient reports as mild epigastric pain and she was started on a PPI, workup for abdominal pain was essentially negative. Sodium level 117, suspected to be secondary to poor oral intake and improved to 127 with NS hydration. Following her discharge she continued to experience bronchitis/sinusitis symptoms. She had two episodes of mild hemoptysis just prior to her presentation to the ER most recently, which she described as coughing up small blood clots mixed with sputum. CTA revealed Bulky mediastinal and right hilar adenopathy with right suprahilar mass or node. Hyponatremia with Na 123 on admission. Patient is a long-time smoker who recently quit smoking a few weeks ago during her last admission for hyponatremia. She has lost about 20 pounds in the last 4 months, she states she has been trying to eat healthy during this time, however , she has lost more weight than should account for her lifestyle modifications. Past Med Surg Social Fam HX - Past Medical History Medical history: arthritis, hyperlipidemia, hypertension, thyroid disease Psychiatric history: no psych history - Past Surgical History Surgical History: appendectomy - Social History Smoking Status: Former smoker (quit 2 weeks ago) Smokeless Tobacco Status: No Alcohol use: none Drug use: none - Family History Brother Hx Family Cardiac Disorders: Yes Hx Family Endocrine Disorder: Yes Father Living Status: Hx Family Respiratory Disorders: Yes (COPD) Mother Living Status: Hx Family Respiratory Disorders: No Medications and Allergies Levothyroxine Sodium [Levoxyl] 50 mcg PO QAM 06/10/17 [History] Metoprolol XL (24 HR) Succ [Toprol Xl] 25 mg PO DAILY 06/10/17 [History] [place]-3/Dha/Epa/Fish Oil [Fish Oil 1,000 mg Softgel] 2 cap PO BID 06/10/17 [ History] Simvastatin [Zocor] 40 mg PO QPM 06/10/17 [History] Omeprazole [PriLOSEC] 40 mg PO BIDAC #60 capsule.dr 06/13/17 [Rx] Albuterol Sulfate [Albuterol Inhaler] 2 puff IH Q4HR PRN #1 hfa.aer.ad 06/25/17 [Rx] Sodium Chloride 1 gm PO BID #60 tablet 06/25/17 [Rx] Promethazine [Phenergan] 25 mg PO Q6HR PRN #30 tablet 07/02/17 [Rx] 3 Allergy/AdvReac Type Severity Reaction Status Date / Time Amoxicillin [From Augmentin] Allergy Rash Verified 07/02/17 15:10 peace Allergy Rash Verified 07/02/17 15:10 clavulanic acid Allergy Rash Verified 07/02/17 15:10 [From Augmentin] diazepam Allergy Rash Verified 07/02/17 15:10 egg Allergy Rash Verified 07/02/17 15:10 ibuprofen Allergy Rash Verified 07/02/17 15:10 peanut Allergy Anaphylaxis Verified 07/02/17 15:10 Penicillins Allergy Rash Verified 07/02/17 15:10 Cyclobenzaprine AdvReac Numbness Verified 07/02/17 15:10 prednisone AdvReac Gastrointestinal Verified 07/02/17 15:10 Upset metals Allergy Rash Uncoded 06/10/17 07:56 Constitutional: Present: as per HPI, weight loss. Absent: anorexia, chills, fever(s) Eyes: Absent: change in vision Nose, mouth and throat: Absent: mouth lesions Cardiovascular: Absent: chest pain, irregular heart rhythm, palpitations Respiratory: Present: as per HPI, cough, dyspnea, hemoptysis Gastrointestinal: Present: as per HPI, abdominal pain. Absent: hematemesis, hematochezia, nausea, vomiting Genitourinary: Absent: dysuria Musculoskeletal: Absent: myalgias Integumentary: Absent: wounds Neurological: Absent: focal weakness, headache(s), numbness, sensory deficit, syncope, tingling Hematologic/Lymphatic: Absent: easy bleeding, lymphadenopathy Oncology - Exam - Constitutional Vitals: Temp Pulse Resp BP Pulse Ox 98.1 F 76 18 148/78 95 06/25/17 11:30 06/25/17 11:30 06/25/17 11:30 06/25/17 11:30 06/25/17 11:30 General appearance: cooperative, no acute distress, no febrile - Respiratory Respiratory exam: Present: decreased breath sounds - Cardiovascular Cardiovascular exam: Present: RRR, +S1, +S2 - GI/Abdominal GI/Abdominal exam: Present: normal bowel sounds, soft. Absent: tenderness - Extremities Exam Extremities exam: Present: normal inspection. Absent: calf tenderness - Neurological Exam Neurological exam: Present: alert, oriented X3, no focal deficits, strengths equal and symetr throughout - Skin Skin exam: Present: normal color, warm Oncology - Results Labs: Short CBC 06/25/17 Range/Units 07:37 WBC 9.7 (4.3-11.1) K/mcL Hgb 11.4 L (11.5-15.4) g/dL Hct 32.1 L (35.3-44.9) % Plt Count 373 (140-400) K/mcL Neutrophils # 7.0 (1.6-8.9) K/mcL BMP 06/25/17 07:37 Sodium 124 L Potassium 3.9 Chloride 89 L Carbon Dioxide 26 BUN 9 Creatinine 0.59 L Glucose 106 H Calcium 9.5 Consult Discharge Plan - Plan Instructions: Doxycycline (By mouth), Albuterol (By breathing), Prednisone (By mouth), Chronic Obstructive Pulmonary Disease (DC) Referrals: Gee Duran [Non-Partnered Physician] - 07/02/17 11:35 am Nina Medina MD [Partnered Physician] - 06/29/17 ( Bronchoscopy on 06/29- Please call Wednesday if you have not heard anything about what time to arrive) Scott Shine DO [Primary Care Provider] - 07/01/17 2:15 pm (Please follow up as schedule...) Prescriptions: Albuterol Sulfate [Albuterol Inhaler] 2 puff IH Q4HR PRN #1 hfa.aer.ad PRN Reason: Shortness Of Breath Sodium Chloride 1 gm PO BID #60 tablet <Gee Duran - Last Filed: 07/05/17 08:13> Date of Encounter: 06/25/17 - Data of Consult Requesting Physician: Olivia Meza MD Primary Care Provider: Halrey Edwards - Consult Narrative History of present illness: Ms. Scruggs is a 71 year old female Oncology - Exam - Constitutional Vitals: Temp Pulse Resp BP Pulse Ox 98.1 F 76 18 148/78 95 06/25/17 11:30 06/25/17 11:30 06/25/17 11:30 06/25/17 11:30 06/25/17 11:30 - Attending Attestation Seen and examined patient and agree with assessment and plan. Patient with likely Lung Cancer. Her hemoptysis has resolved as of the moment. She has no significant dyspnea. given her hyponatremia, suspect SCLC. FOrutnately, LDH is normal. Plan for OP bronch and bx next week. We will arrange for PET and f/u with med/onc and rad/onc afterwards based on bx results and PET scan.
--- NOTE | 2017-06-25 14:23 | Pulmonology Progress Note ---
Date of Encounter: 06/25/17 Time of Encounter: 07:00 Assessment and Plan (1) COPD exacerbation Status: Acute To complete 5 days of steroids and 7 days of antibiotics (2) Hemoptysis Status: Acute Is stopped (3) Lung mass Status: Acute Patient has a suprahilar mass in the right side with mediastinal LN and Hilar LN most likely Lung cancer EBUS arranged on Wednesday at 11 AM . Patient will be discharged today . Subjective Principal diagnosis: Suprahilar mass with Hilar and mediastinal Lymphadenopathy Interval history: Patient is doing well on and off coughing but no blood today , denies any chest pain , no fever or chills. Objective PUL Vital signs: Last Vital Signs Temp 98.1 F 06/25/17 11:30 Pulse 76 06/25/17 11:30 Resp 18 06/25/17 11:30 BP 148/78 06/25/17 11:30 Pulse Ox 95 06/25/17 11:30 Auscultation: bilateral: clear Results - Laboratory Findings CBC and BMP: 06/25/17 07:37 06/25/17 07:37 PT/INR, D-dimer PT 10.9 Seconds (9.4-12.1) 06/23/17 19:50 Abnormal lab findings: Abnormal lab results RBC 3.79 M/mcL (3.82-4.97) L 06/25/17 07:37 Hgb 11.4 g/dL (11.5-15.4) L 06/25/17 07:37 Hct 32.1 % (35.3-44.9) L 06/25/17 07:37 Nucleated RBCs/100 WBC 0.4 /100 WBC (0) H 06/24/17 06:19 Sodium 124 mEq/L (136-145) L 06/25/17 07:37 Chloride 89 mEq/L (98-107) L 06/25/17 07:37 Creatinine 0.59 mg/dL (0.60-1.20) L 06/25/17 07:37 Glucose 106 mg/dL (70-105) H 06/25/17 07:37 Calculated Osmolality 257 (280-300) L 06/25/17 07:37 Ur Specific [place] > 1.030 (1.010-1.025) H 06/23/17 22:26 Urine Protein 100 mg/dL (Neg-Trace) H 06/23/17 22:26 Urine Microscopic WBC 5-15 per hpf (0-3) H 06/23/17 22:26 - Clinical Findings Intake & Output: Intake & Output 06/24/17 06/25/17 06/25/17 23:59 07:59 15:59 Intake Total 100 / 100 60 / 60 360 / 360 Output Total 0 / 0 Balance 100 / 100 60 / 60 360 / 360 Weight 81.193 kg Consult Discharge Plan - Plan Instructions: Doxycycline (By mouth), Albuterol (By breathing), Prednisone (By mouth), Chronic Obstructive Pulmonary Disease (DC) Referrals: Gee Duran [Non-Partnered Physician] - 07/02/17 11:35 am Nina Medina MD [Partnered Physician] - 06/29/17 ( Bronchoscopy on 06/29- Please call Wednesday if you have not heard anything about what time to arrive) Scott Shine DO [Primary Care Provider] - 07/01/17 2:15 pm (Please follow up as schedule...) Prescriptions: Albuterol Sulfate [Albuterol Inhaler] 2 puff IH Q4HR PRN #1 hfa.aer.ad PRN Reason: Shortness Of Breath Doxycycline 100 mg PO BID #14 capsule predniSONE [PredniSONE] 10 mg PO DAILY 6 Days tablet Sodium Chloride 1 gm PO BID #60 tablet
[2017-06-26] MEDS ORDERED: Doxycycline 100 MG CAPSULE PO SCH (09:00)
== END 2017-06-25 13:33 | disposition home or self-care (01) ==
LOC: 2ANU 18:14 → EMEROO 18:14 → 2ANU 23:43
PROVIDERS: ADMIT Pediatrics; ATTEND Internal Medicine

== ENCOUNTER 2017-08-03 23:36 | Inpatient (IN) ==
[2017-08-03] MEDS: 0.9 % Sodium Chloride 1,000 ML IVC ONE (23:56)
--- NOTE | 2017-08-04 00:16 | Emergency Department Note ---
Disposition Clinical Impression: Lung cancer Qualifiers: Laterality: unspecified laterality Lung location: unspecified part of lung Qualified Code(s): C34.90 - Malignant neoplasm of unspecified part of unspecified bronchus or lung Fever Qualifiers: Fever type: unspecified Qualified Code(s): R50.9 - Fever, unspecified Afib Qualifiers: Atrial fibrillation type: unspecified Qualified Code(s): I48.91 - Unspecified atrial fibrillation Disposition: Admitted As Inpatient Condition: Fair Time of Disposition: 03:00 Fever HPI - General Chief Complaint: ED Fever Stated Complaint: fever, cancer patient had chemo and rad todayu Time Seen by Provider: 08/03/17 23:47 Source: patient, family Limitations: no limitations Nursing Notes Reviewed: Yes Vital Signs Reviewed: Yes - History of Present Illness Pt Subjective Complaint: fever Onset (ago): hour(s) Temperature Source: subjective Context: on chemotherapy Associated symptoms: Reports: chills. Denies: rhinorrhea - Related Data Home Medications Medication Instructions Recorded Confirmed Levothyroxine Sodium [Levoxyl] 50 mcg PO QAM 06/10/17 08/03/17 Metoprolol XL (24 HR) Succ [Toprol 25 mg PO DAILY 06/10/17 08/03/17 Xl] [place]-3/Dha/Epa/Fish Oil [Fish Oil 2 cap PO BID 06/10/17 08/03/17 1,000 mg Softgel] Simvastatin [Zocor] 40 mg PO QPM 06/10/17 08/03/17 Previous Rx's Medication Instructions Recorded Albuterol Sulfate [Albuterol 2 puff IH Q4HR PRN #1 hfa.aer.ad 06/25/17 Inhaler] Promethazine [Phenergan] 25 mg PO Q6HR PRN #30 tablet 07/02/17 Nystatin [Nystatin Suspension] 100,000 units PO QID #120 ml 07/19/17 Omeprazole [PriLOSEC] 20 mg PO DAILY #30 capsule. 07/27/17 Furosemide [Lasix] 20 mg PO DAILY PRN #5 tablet 08/03/17 Allergies Allergy/AdvReac Type Severity Reaction Status Date / Time Amoxicillin [From Augmentin] Allergy Rash Verified 07/26/17 13:07 peace Allergy Rash Verified 07/26/17 13:07 clavulanic acid Allergy Rash Verified 07/26/17 13:07 [From Augmentin] diazepam Allergy Rash Verified 07/26/17 13:07 egg Allergy Rash Verified 07/26/17 13:07 ibuprofen Allergy Rash Verified 07/26/17 13:07 peanut Allergy Anaphylaxis Verified 07/26/17 13:07 Penicillins Allergy Rash Verified 07/26/17 13:07 Cyclobenzaprine AdvReac Numbness Verified 07/26/17 13:07 prednisone AdvReac Gastrointestinal Verified 07/26/17 13:07 Upset metals Allergy Rash Uncoded 07/26/17 13:07 All systems ED: reviewed and negative except as stated. Review of Systems: As Per HPI Constitutional: Reports: as per HPI Eyes: Denies: vision change ENT ED: Denies: throat pain Cardiovascular: Denies: chest pain, palpitations Respiratory: Denies: cough, dyspnea Gastrointestinal: Denies: abdominal pain Genitourinary: Denies: dysuria Musculoskeletal: Denies: back pain Integumentary: Denies: rash Neurological: Reports: weakness. Denies: headache Endocrine: Reports: fatigue Hematological/Lymphatic: Denies: easy bleeding Allergic/Immunologic: Denies: facial swelling Fever PMH - Past Medical History Medical history: Reports: arthritis, cancer, hyperlipidemia, hypertension, thyroid disease Surgical history: Reports: appendectomy Psychiatric history: Reports: no psych history - Social History Smoking Status: Former smoker Alcohol use: Reports: rarely Drug use: Reports: none Physical Exam - General Limitations: no limitations General appearance: alert, in no apparent distress - Head Head exam: normocephalic - Eye Eye exam: Present: EOMI - ENT ENT exam: mucous membranes moist - Neck Neck exam: Present: full ROM - Chest Chest inspection: Present: symmetric chest wall rise - Respiratory Respiratory exam: Present: normal lung sounds bilaterally. Absent: respiratory distress - Cardiovascular Cardiovascular exam: Present: tachycardia - Abdominal Exam Abdominal exam: Present: soft, Non-Tender - Extremities Exam Extremities exam: Absent: tenderness - Neurological Exam Neurological exam: Present: alert - Psychiatric Psychiatric exam: Present: normal affect - Skin Skin exam: Present: warm, dry, intact, normal color. Absent: rash, cyanosis, diaphoresis Course Course Narrative: Patient is a 71yo F with known history of lung cancer, under chemoradiation therapy. She states this is her second round of radiation and go down it came out. She was diagnosed 2 months ago. Had treatments earlier today. She reports feeling fine this morning after she had treatment. She became febrile approximately 2 hours prior to admission. She also had some diarrhea. Patient describes contact her oncologist office, who advised that she be seen in the ED. Patient meets criteria. Workup initiated. - Reevaluation(s) Reevaluation #1: Discussed with Dr. Parrish, who advised for fluids, influenza swap, and agreed for decision to admit. Time: 00:15 Reevaluation #2: Pt was discussed with and accepted by hospitalist Dr. Beckwith who accepted patient. He also requested CT chest no contrast to further evaluate for likely pneumonia; continue with fluids, cooling techniques which I did convey to nursing. He mentioned no additional heart rate controlling medications at this time. He also agreed for stool sample if available. Time: 02:47 Vital Signs Temperature 103.0 F H 08/03/17 23:39 Pulse Rate 139 08/03/17 23:39 Respiratory Rate 22 08/03/17 23:39 Blood Pressure 165/85 08/03/17 23:39 O2 Sat by Pulse Oximetry 93 08/03/17 23:39 Temperature 99.8 F H 08/04/17 05:10 Pulse Rate 105 08/04/17 04:19 Respiratory Rate 18 08/04/17 04:19 Blood Pressure 147/78 08/04/17 04:19 O2 Sat by Pulse Oximetry 95 08/04/17 04:19 Oxygen Delivery Oxygen Delivery Room Air Fever - MDM Narrative Medical decision making narrative: Chest CT 08/04/17 02:49 IMPRESSION: 1. No evidence of pneumonia. 2. Positive response to treatment. Significant interval decrease in size in the right upper lobe nodule and mediastinal lymphadenopathy. D/ / Hector Deras MD / Hector Deras MD Interpreting Provider: Hector Deras MD Chest X-Ray 08/04/17 23:48 IMPRESSION: Negative portable chest. D/ / Rafy Almonte MD / Rafy Almonte MD Interpreting Provider: Rafy Almonte MD Laboratory Tests 08/04/17 08/04/17 08/04/17 00:06 00:21 00:21 WBC 6.1 D RBC 3.75 L Hgb 11.5 Hct 33.5 L MCV 89.3 MCH 30.7 MCHC 34.3 RDW 13.6 Plt Count 320 MPV 9.8 Immature Gran % 1.8 Seg Neutrophils % 89.4 Lymphocytes % 1.1 Monocytes % 7.4 Eosinophils % 0.0 Basophils % 0.3 Neutrophils # 5.5 Lymphocytes # 0.1 L Monocytes # 0.5 Eosinophils # 0.0 Basophils # 0.0 Platelet Estimate Normal Sodium 132 L Potassium 4.1 Chloride 101 Carbon Dioxide 22 L BUN 9 Creatinine 0.76 Est GFR ( Amer) > 60 Est GFR (Non-Af Amer) > 60 BUN/Creatinine Ratio 12 Glucose 196 H Calculated Osmolality 278 L Lactic Acid Calcium 8.6 Troponin I < 0.03 TSH 1.281 Urine Color Yellow Urine Clarity Clear Urine pH 6.0 Ur Specific [place] 1.018 Urine Protein >=300 H Urine Glucose (UA) Normal Urine Ketones Negative Urine Blood Negative Urine Nitrite Negative Urine Bilirubin Negative Urine Urobilinogen Normal Ur Leukocyte Esterase Negative Urine Microscopic RBC 0-3 Urine Microscopic WBC 5-15 H Ur Squamous Epith Cells Many H Urine Bacteria None Seen Hyaline Casts None Seen Ur Culture Indicated? NO 08/04/17 08/04/17 00:21 03:42 WBC RBC Hgb Hct MCV MCH MCHC RDW Plt Count MPV Immature Gran % Seg Neutrophils % Lymphocytes % Monocytes % Eosinophils % Basophils % Neutrophils # Lymphocytes # Monocytes # Eosinophils # Basophils # Platelet Estimate Sodium Potassium Chloride Carbon Dioxide BUN Creatinine Est GFR ( Amer) Est GFR (Non-Af Amer) BUN/Creatinine Ratio Glucose Calculated Osmolality Lactic Acid 2.4 H 1.4 Calcium Troponin I TSH Urine Color Urine Clarity Urine pH Ur Specific [place]wn Urine Protein Urine Glucose (UA) Urine Ketones Urine Blood Urine Nitrite Urine Bilirubin Urine Urobilinogen Ur Leukocyte Esterase Urine Microscopic RBC Urine Microscopic WBC Ur Squamous Epith Cells Urine Bacteria Hyaline Casts Ur Culture Indicated? - Lab Data Lab results reviewed: Yes I reviewed the patient's lab results. Result diagrams: 08/04/17 00:21 08/04/17 00:21 Lab Results 08/04/17 08/04/17 08/04/17 Range/Units 00:06 00:21 00:21 WBC 6.1 D (4.3-11.1) K/mcL RBC 3.75 L (3.82-4.97) M/mcL Hgb 11.5 (11.5-15.4) g/dL Hct 33.5 L (35.3-44.9) % MCV 89.3 (83.0-100.0) fL MCH 30.7 (28.0-33.3) pg MCHC 34.3 (31.6-35.5) g/dL RDW 13.6 (11.5-14.5) % Plt Count 320 (140-400) K/mcL MPV 9.8 (9.4-12.4) fL Immature Gran % 1.8 (0-4) % Seg Neutrophils % 89.4 % Lymphocytes % 1.1 % Monocytes % 7.4 % Eosinophils % 0.0 % Basophils % 0.3 % Neutrophils # 5.5 (1.6-8.9) K/mcL Lymphocytes # 0.1 L (0.6-4.6) K/mcL Monocytes # 0.5 (0.0-1.3) K/mcL Eosinophils # 0.0 (0.0-0.6) K/mcL Basophils # 0.0 (0.0-0.2) K/mcL Platelet Estimate Normal (Normal) Sodium 132 L (136-145) mEq/L Potassium 4.1 (3.5-5.1) mEq/L Chloride 101 (98-107) mEq/L Carbon Dioxide 22 L (23-29) mEq/L BUN 9 (8-23) mg/dL Creatinine 0.76 (0.60-1.20) mg/dL Est GFR ( Amer) > 60 (> 60) Est GFR (Non-Af Amer) > 60 (> 60) BUN/Creatinine Ratio 12 (6-26) Glucose 196 H (70-105) mg/dL Calculated Osmolality 278 L (280-300) Lactic Acid (0.5-2.2) mmol/L Calcium 8.6 (8.6-10.3) mg/dL Troponin I < 0.03 (< 0.04) ng/mL TSH 1.281 (0.340-5.600) mcIU/mL Urine Color Yellow (Yellow) Urine Clarity Clear (Clear) Urine pH 6.0 (5.0-8.0) pH Units Ur Specific [place] 1.018 (1.010-1.025) Urine Protein >=300 H (Neg-Trace) mg/dL Urine Glucose (UA) Normal (Normal) mg/dL Urine Ketones Negative (Negative) mg/dL Urine Blood Negative (Negative) Urine Nitrite Negative (Negative) Urine Bilirubin Negative (Negative) Urine Urobilinogen Normal (Normal) mg/dL Ur Leukocyte Esterase Negative (Negative) Urine Microscopic RBC 0-3 (0-3) per hpf Urine Microscopic WBC 5-15 H (0-3) per hpf Ur Squamous Epith Cells Many H (None-Few) per lpf Urine Bacteria None Seen (None-Few) per hpf Hyaline Casts None Seen (None-Few) per lpf Ur Culture Indicated? NO (NO) 08/04/17 08/04/17 Range/Units 00:21 03:42 WBC (4.3-11.1) K/mcL RBC (3.82-4.97) M/mcL Hgb (11.5-15.4) g/dL Hct (35.3-44.9) % MCV (83.0-100.0) fL MCH (28.0-33.3) pg MCHC (31.6-35.5) g/dL RDW (11.5-14.5) % Plt Count (140-400) K/mcL MPV (9.4-12.4) fL Immature Gran % (0-4) % Seg Neutrophils % % Lymphocytes % % Monocytes % % Eosinophils % % Basophils % % Neutrophils # (1.6-8.9) K/mcL Lymphocytes # (0.6-4.6) K/mcL Monocytes # (0.0-1.3) K/mcL Eosinophils # (0.0-0.6) K/mcL Basophils # (0.0-0.2) K/mcL Platelet Estimate (Normal) Sodium (136-145) mEq/L Potassium (3.5-5.1) mEq/L Chloride (98-107) mEq/L Carbon Dioxide (23-29) mEq/L BUN (8-23) mg/dL Creatinine (0.60-1.20) mg/dL Est GFR ( Amer) (> 60) Est GFR (Non-Af Amer) (> 60) BUN/Creatinine Ratio (6-26) Glucose (70-105) mg/dL Calculated Osmolality (280-300) Lactic Acid 2.4 H 1.4 (0.5-2.2) mmol/L Calcium (8.6-10.3) mg/dL Troponin I (< 0.04) ng/mL TSH (0.340-5.600) mcIU/mL Urine Color (Yellow) Urine Clarity (Clear) Urine pH (5.0-8.0) pH Units Ur Specific [place] (1.010-1.025) Urine Protein (Neg-Trace) mg/dL Urine Glucose (UA) (Normal) mg/dL Urine Ketones (Negative) mg/dL Urine Blood (Negative) Urine Nitrite (Negative) Urine Bilirubin (Negative) Urine Urobilinogen (Normal) mg/dL Ur Leukocyte Esterase (Negative) Urine Microscopic RBC (0-3) per hpf Urine Microscopic WBC (0-3) per hpf Ur Squamous Epith Cells (None-Few) per lpf Urine Bacteria (None-Few) per hpf Hyaline Casts (None-Few) per lpf Ur Culture Indicated? (NO) - Radiology Data Radiology results reviewed: Yes I reviewed the patient's radiology results. - EKG Data EKG attestation: Yes I reviewed and interpreted this EKG. EKG results narrative: afib with rvr , vent rate 128, qrs dur 73, QT/QTc 272/349 Attestation Statement - Attestation Attestation: I examined this patient and my medical decision-making was reviewed with the Resident Physician. I agree with the documented findings, disposition and treatment plan as described except to the extent set forth below. Fever, possible sepsis. Plan to start antibiotics, obtain fluid swab, blood cultures, IV fluids. Patient also has findings of new onset A. fib. We will start Lovenox and give dose of metoprolol. Heart rate did improve with fluids. A. fib possibly related underlying sepsis. We will admit for cardiology consult and evaluation of sepsis. I spent greater than 35 minutes of critical care time resuscitating this acutely ill patient suffering from A. fib which was new in onset as well as sepsis. This was excluding billable procedures.
[2017-08-04 00:18] LABS: Bilirubin,Urine Negative (Negative); Blood,Urine Negative (Negative); Clarity,Urine Clear (Clear); Color,Urine Yellow (Yellow); Glucose,Urine (UA) Normal (Normal); Ketones,Urine Negative (Negative); Leukocyte Esterase,Urine Negative (Negative); Nitrite,Urine Negative (Negative); Protein,Urine >=300 mg/dL (Neg-Trace); Specific Gravity,Urine 1.018 (1.010-1.025); Urobilinogen,Urine Normal (Normal)
[2017-08-04 00:20] LABS: Bacteria,Urine None Seen per hpf (None-Few); Hyaline Casts,Urine None Seen per lpf (None-Few); RBC,Urine 0-3 per hpf (0-3); Squamous Epithelial Cell,Urine Many per lpf (None-Few)
[2017-08-04 00:42] LABS: Basophils % 0.3 %; Hematocrit 33.5 % (35.3-44.9); Hemoglobin 11.5 g/dL (11.5-15.4); Immature Granulocytes % 1.8 % (0-4); Lymphocytes # 0.1 K/mcL (0.6-4.6); Lymphocytes % 1.1 %; Mean Corpuscular HGB Conc 34.3 g/dL (31.6-35.5); Mean Corpuscular Hemoglobin 30.7 pg (28.0-33.3); Mean Corpuscular Volume 89.3 fL (83.0-100.0); Mean Platelet Volume 9.8 fL (9.4-12.4); Monocytes # 0.5 K/mcL (0.0-1.3); Monocytes % 7.4 %; Neutrophils # 5.5 K/mcL (1.6-8.9); Platelet Count 320 K/mcL (140-400); Red Blood Count 3.75 M/mcL (3.82-4.97); Red Cell Distribution Width 13.6 % (11.5-14.5); Segmented Neutrophils % 89.4 %
[2017-08-04 01:00] LABS: BUN/Creatinine Ratio 12 (6-26); Blood Urea Nitrogen 9 mg/dL (8-23); Calcium 8.6 mg/dL (8.6-10.3); Carbon Dioxide 22 mEq/L (23-29); Chloride 101 mEq/L (98-107); Glucose 196 mg/dL (70-105); Osmolality,Calculated 278 (280-300); Platelet Estimate Normal (Normal); Potassium 4.1 mEq/L (3.5-5.1); Sodium 132 mEq/L (136-145); Troponin I < 0.03 ng/mL (< 0.04); eGFR For African Americans > 60 (> 60); eGFR For Non-African Americans > 60 (> 60)
[2017-08-04] MEDS ORDERED: Vancomycin (wt based) 1,000 MG VIAL IVPB SCH (02:00)
[2017-08-04] MEDS ORDERED: *HR* Enoxaparin 80 MG/0.8 ML SYRINGE SQ STA (02:15)
[2017-08-04] MEDS ORDERED: *HR* Metoprolol 5 MG/5 ML VIAL IVP ONE (02:15)
[2017-08-04 03:02] LABS: Thyroid Stimulating Hormone 1.281 mcIU/mL (0.340-5.600)
[2017-08-04] MEDS ORDERED: *HR* Promethazine 25 MG/ML VIAL IVP PRN (03:44)
[2017-08-04] MEDS ORDERED: *HR* HYDROcodone/Acet 5/325 mg TABLET PO PRN (03:44)
[2017-08-04] MEDS ORDERED: Acetaminophen 325 MG TABLET PO PRN (03:44)
[2017-08-04] MEDS ORDERED: Naloxone 0.4 MG/ML INJ IVP PRN (03:44)
[2017-08-04] MEDS ORDERED: Ondansetron 4 MG/2 ML VIAL IVP PRN (03:44)
[2017-08-04] MEDS ORDERED: 0.9 % Sodium Chloride 1,000 ML ONE (03:48)
[2017-08-04] MEDS: 0.9 % Sodium Chloride 1,000 ML IVC ONE (03:59)
--- NOTE | 2017-08-04 05:20 | Internal Med History&Physical ---
Date of Encounter: 08/04/17 Time of Encounter: 04:00 Internal Medicine - H&P: HPI Chief complaint: Fever, Shortness of breath Admitted From: Emergency Dept Plans for Post Hospital Care: Home History of present illness: Ms. 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 She does have T max 103. 3. She did c/o cough with clear expectoration. Pt was started on Chemo and radiation therapy recently. She became neutropenic a week ago with WBC 1.1, now improved WBC to 6.1. She denied any CP. Pt was given IV abx and started her on IV fluids, now pt states she is feeling little better. She also happened to be in new onset A fib with RVR HR in 140's. With IV hydration her HR in in 100's now. Past Med Surg Social Fam HX - Past Medical History Medical history: arthritis, cancer, hyperlipidemia, hypertension, thyroid disease Psychiatric history: no psych history - Past Surgical History Surgical History: appendectomy - Social History Smoking Status: Former smoker Smokeless Tobacco Status: No Alcohol use: rarely Drug use: none - Family History Brother Hx Family Cardiac Disorders: Yes Hx Family Endocrine Disorder: Yes Father Living Status: Hx Family Respiratory Disorders: Yes (COPD) Mother Living Status: Hx Family Respiratory Disorders: No Internal Medicine - H&P: Meds Levothyroxine Sodium [Levoxyl] 50 mcg PO QAM 06/10/17 [History] Metoprolol XL (24 HR) Succ [Toprol Xl] 25 mg PO DAILY 06/10/17 [History] [place]-3/Dha/Epa/Fish Oil [Fish Oil 1,000 mg Softgel] 2 cap PO BID 06/10/17 [ History] Simvastatin [Zocor] 40 mg PO QPM 06/10/17 [History] Albuterol Sulfate [Albuterol Inhaler] 2 puff IH Q4HR PRN #1 hfa.aer.ad 06/25/17 [Rx] Promethazine [Phenergan] 25 mg PO Q6HR PRN #30 tablet 07/02/17 [Rx] Nystatin [Nystatin Suspension] 100,000 units PO QID #120 ml 07/19/17 [Rx] Omeprazole [PriLOSEC] 20 mg PO DAILY #30 capsule. 07/27/17 [Rx] Furosemide [Lasix] 20 mg PO DAILY PRN #5 tablet 08/03/17 [Rx] 3 Allergy/AdvReac Type Severity Reaction Status Date / Time Amoxicillin [From Augmentin] Allergy Rash Verified 07/26/17 13:07 peace Allergy Rash Verified 07/26/17 13:07 clavulanic acid Allergy Rash Verified 07/26/17 13:07 [From Augmentin] diazepam Allergy Rash Verified 07/26/17 13:07 egg Allergy Rash Verified 07/26/17 13:07 ibuprofen Allergy Rash Verified 07/26/17 13:07 peanut Allergy Anaphylaxis Verified 07/26/17 13:07 Penicillins Allergy Rash Verified 07/26/17 13:07 Cyclobenzaprine AdvReac Numbness Verified 07/26/17 13:07 prednisone AdvReac Gastrointestinal Verified 07/26/17 13:07 Upset metals Allergy Rash Uncoded 07/26/17 13:07 All Systems PM: A 10-system review of systems was performed and is negative for pertinent findings except as documented above in the HPI. Review of systems: All the systems are reviewed everything is benign except the systems and symptoms I mentioned in the history of present illness - Constitutional Vitals: Temp Pulse Resp BP Pulse Ox 99.8 F H 105 18 147/78 95 08/04/17 05:10 08/04/17 04:19 08/04/17 04:19 08/04/17 04:19 08/04/17 04:19 General appearance: Present: cooperative, mild distress, A&O X 3, answers questions appropriately - Head Head exam: Present: atraumatic, normal inspection - Neck Neck exam general surgery: Present: supple - Respiratory Respiratory exam: Present: decreased breath sounds. Absent: rales, respiratory distress, rhonchi, wheezes - Cardiovascular Cardiovascular exam: Present: irregular rhythm, +S1, +S2, tachycardia - GI/Abdominal GI/Abdominal exam: Present: normal bowel sounds, soft. Absent: rebound, rigid, tenderness - Extremities Exam Extremities exam: Absent: calf tenderness, pedal edema, tenderness - Back Exam Back exam: Absent: CVA tenderness (L), CVA tenderness (R) - Neurological Exam Neurological exam: Present: alert, oriented X3, no focal deficits - Psychiatric Psychiatric exam: Present: normal affect, normal mood Internal Med - H&P Results - Labs CBC & Chem 7: 08/04/17 00:21 08/04/17 00:21 - Impressions ITS Impressions Chest X-Ray 08/04/17 23:48 IMPRESSION: Negative portable chest. D/ / Rafy Almonte MD / Rafy Almonte MD Interpreting Provider: Rafy Almonte MD - Assessment and plan (1) Sepsis Current Visit: Yes Status: Acute Assessment and plan: Admit the pt into tele she does meet sepsis criteria with T max 103.3, Tachycardia,elevated Lactic acid and source of inf as bronchitis blood cx drawn in the ER I will check sputum culture, step pneumonia, Legionella and condition and respiratory viral panel Started on empirical abx Cefepime + Levaquin vancomycin x one dose given cont IV hydration Qualifiers: Sepsis type: sepsis due to unspecified organism Qualified Code(s): A41.9 - Sepsis, unspecified organism (2) Bronchitis Current Visit: Yes Status: Acute Assessment and plan: Patient did mention about cough with expectoration looks like a patient might have bacterial infection continue broad-spectrum antibiotic (3) Small cell lung cancer Current Visit: Yes Status: Acute Assessment and plan: Getting active chemotherapy and radiotherapy we will consult heme oncologist in the morning for further evaluation (4) New onset a-fib Current Visit: Yes Status: Acute Assessment and plan: Triggered by sepsis new onset with IV hydration heart rate is improving now for now I would continue home medication metoprolol we will check 2-D echo in the morning Her CHADSVASC score 4 she does need long-term anticoagulation shows already given Lovenox SQ injection 1 time dose for now (5) HTN (hypertension) Current Visit: No Status: Chronic Assessment and plan: Stable with the current home medications Qualifiers: Hypertension type: essential hypertension Qualified Code(s): I10 - Essential (primary) hypertension (6) Hyperlipidemia Current Visit: No Status: Chronic Assessment and plan: On statins Qualifiers: Hyperlipidemia type: pure hypercholesterolemia Qualified Code(s): E78.00 - Pure hypercholesterolemia, unspecified; E78.0 - Pure hypercholesterolemia (7) Hypothyroidism Current Visit: No Status: Chronic Assessment and plan: Resumed home medication Qualifiers: Hypothyroidism type: unspecified Qualified Code(s): E03.9 - Hypothyroidism , unspecified - Time Spent With Patient Total time spent is greater than 50% in coordination of care (as documented) at patient's floor/unit and/or counseling patient:
[2017-08-04] MEDS ORDERED: Cefepime HCl 2,000 MG in Water for inj. (sterile) 20 ML 20 ML IVP SCH (06:00)
[2017-08-04] MEDS ORDERED: Aminoglycoside Consult 1 EACH MC ONE (07:26)
[2017-08-04 07:51] LABS: Troponin I < 0.03 ng/mL (< 0.04)
[2017-08-04 07:58] LABS: Alanine Aminotransferase 41 Units/L (7-52); Albumin 3.4 g/dL (3.5-5.7); Albumin/Globulin Ratio 1.5 (1.1-2.2); Alkaline Phosphatase 98 Units/L (34-104); Aspartate Amino Transferase 39 Units/L (13-39); BUN/Creatinine Ratio 13 (6-26); Bilirubin,Total 0.7 mg/dL (0.3-1.0); Blood Urea Nitrogen 11 mg/dL (8-23); Calcium 7.8 mg/dL (8.6-10.3); Carbon Dioxide 19 mEq/L (23-29); Chloride 103 mEq/L (98-107); Globulin 2.3 g/dL (2.4-3.5); Glucose 160 mg/dL (70-105); Magnesium 1.6 mg/dL (1.6-2.6); Osmolality,Calculated 273 (280-300); Phosphorous 4.3 mg/dL (2.7-4.5); Potassium 4.1 mEq/L (3.5-5.1); Sodium 130 mEq/L (136-145); Total Protein 5.7 g/dL (6.4-8.9); eGFR For African Americans > 60 (> 60); eGFR For Non-African Americans > 60 (> 60)
[2017-08-04 08:21] LABS: Basophils % 0.3 %; Eosinophils % 0.1 %; Hematocrit 31.1 % (35.3-44.9); Hemoglobin 10.5 g/dL (11.5-15.4); Immature Granulocytes % 1.5 % (0-4); Lymphocytes % 0.5 %; Mean Corpuscular HGB Conc 33.8 g/dL (31.6-35.5); Mean Corpuscular Hemoglobin 30.6 pg (28.0-33.3); Mean Corpuscular Volume 90.7 fL (83.0-100.0); Monocytes # 0.6 K/mcL (0.0-1.3); Monocytes % 6.6 %; Neutrophils # 7.9 K/mcL (1.6-8.9); Nucleated Red Blood Cells 0.6 /100 WBC (0); Platelet Count 274 K/mcL (140-400); Red Blood Count 3.43 M/mcL (3.82-4.97); Red Cell Distribution Width 13.7 % (11.5-14.5)
[2017-08-04] MEDS: 0.9 % Sodium Chloride 1,000 ML IVC SCH ×2 (09:59→13:09)
[2017-08-04] MEDS: Nystatin SUSP 5 ML UD.LIQ PO SCH ×4 (10:13→20:53)
[2017-08-04] MEDS: Levofloxacin 750 MG/150 ML 750 MG/150 ML BAG IVPB SCH (10:26)
--- NOTE | 2017-08-04 10:40 | Event Note ---
Date of Encounter: 08/04/17 Time of Encounter: 10:39 1. Sepsis likely secondary to bronchitis in the setting of recent history of neutropenia/neutropenic fever Neutrophils are back to normal but they were 0.3 recently. Continue Levaquin and cefepime Test for respiratory viral panel
[2017-08-04] MEDS: Metoprolol XL (24 HR) Succ 25 MG TAB.ER.24H PO SCH (11:46)
[2017-08-04 12:35] LABS: Adenovirus Not Detected (Not Detect); Bordetella Pertussis Not Detected (Not Detect); Chlamydophila pneumoniae Not Detected (Not Detect); Coronavirus 229E Not Detected (Not Detect); Coronavirus HKU1 Not Detected (Not Detect); Coronavirus NL63 Not Detected (Not Detect); Coronavirus OC43 Not Detected (Not Detect); Human Metapneumovirus Not Detected (Not Detect); Human Rhinovirus/Enterovirus Not Detected (Not Detect); Influenza A Subtype 2009 H1 Not Detected (Not Detect); Influenza A Untypeable Not Detected (Not Detect); Influenza B Not Detected (Not Detect); Mycoplasma pneumoniae Not Detected (Not Detect); Parainfluenza Virus 1 Not Detected (Not Detect); Parainfluenza Virus 2 Not Detected (Not Detect); Parainfluenza Virus 3 Not Detected (Not Detect); Parainfluenza Virus 4 Not Detected (Not Detect); Respiratory Syncytial Virus Not Detected (Not Detect)
[2017-08-04] MEDS ORDERED: Albuterol 2.5 MG/3 ML NEBULIZER IH PRN (13:01)
[2017-08-04] MEDS ORDERED: Albuterol 2.5 MG/3 ML NEBULIZER ONE (13:08)
--- NOTE | 2017-08-04 13:13 | Electrocardiograph Report ---
[place] [facility] Test Date: 2017-08-03 Pat Name: Kalie Scruggs Department: 103 Room: 2S2 Gender: F Clinical Support Manager: SHEFALI : 1945 Requested By: Pascual Jones Order Number: [id number] Reading MD: Scott Shine Measurements Intervals [place] Rate: 128 P: NV: 0 QRS: 73 QRSD: 73 T: 23 QT: 273 QTc: 349 Interpretive Statements ATRIAL FIBRILLATION WITH RAPID VENTRICULAR RESPONSE NONSPECIFIC ST & T-WAVE ABNORMALITY ABNORMAL RHYTHM ECG Electronically Signed On 08-04-2017 13:12:06 EDT by Scott Shine
[2017-08-04] MEDS ORDERED: Furosemide 20 MG/2 ML VIAL IVP ONE (14:07)
[2017-08-04] MEDS: Cefepime HCl 2,000 MG in Water for inj. (sterile) 20 ML 20 ML IVP SCH (20:53)
[2017-08-05 02:01] LABS: Hematocrit 27.2 % (35.3-44.9); Hemoglobin 9.2 g/dL (11.5-15.4); Mean Corpuscular HGB Conc 33.8 g/dL (31.6-35.5); Mean Corpuscular Volume 88.6 fL (83.0-100.0); Mean Platelet Volume 9.9 fL (9.4-12.4); Platelet Count 189 K/mcL (140-400); Red Blood Count 3.07 M/mcL (3.82-4.97); Red Cell Distribution Width 14.1 % (11.5-14.5)
[2017-08-05 02:18] LABS: Calcium 7.5 mg/dL (8.6-10.3); Potassium 4.6 mEq/L (3.5-5.1)
[2017-08-05] MEDS: Cefepime HCl 2,000 MG in Water for inj. (sterile) 20 ML 20 ML IVP SCH ×2 (10:23→21:11)
[2017-08-05] MEDS: Levofloxacin 750 MG/150 ML 750 MG/150 ML BAG IVPB SCH (10:26)
[2017-08-05] MEDS: *HR* Heparin 5,000 UNIT/ML VIAL SQ SCH ×2 (10:26→15:58)
[2017-08-05] MEDS: Metoprolol XL (24 HR) Succ 25 MG TAB.ER.24H PO SCH (10:27)
[2017-08-05] MEDS: Nystatin SUSP 5 ML UD.LIQ PO SCH ×4 (10:27→21:11)
--- NOTE | 2017-08-05 10:39 | Internal Med Progress Note ---
<Yordan Velasquez - Last Filed: 08/05/17 16:19> Date of Encounter: 08/05/17 Time of Encounter: 10:00 - Assessment and plan (1) Severe sepsis Current Visit: Yes Status: Acute Assessment and plan: - 3 SIRS criteria (fever 103.3, tachycardia and tachycardia) with lactic acid 2.4 on initial presentation. - Unknown source of infection at this morning. Suspected bronchitis given patient's shortness of breath and cough with no radiographic evidence of pneumonia. - Negative respiratory infection panel, urine antigens for S. pneumoniae or Legionella. - UA negative of nitrite and leukocyte esterase with no bacteria seen. - Blood cultures pending. - Improves as tachypnea and lactic acidosis resolved. - Continue IV cefepime (Day 2) and levofloxacin (Day 2). - Continue hydration with IV NS. - Continue close monitoring. (2) JUAN (acute kidney injury) Current Visit: Yes Status: Acute Assessment and plan: - SCr 1.23 / eGFR 43 today, worsen compared to SCr 0.82 / eGFR > 60 on admission. - Likely secondary to severe sepsis and Lasix use. - Will hold diuresis and continue hydration with IV fluid. - Avoid nephrotoxin. - Continue to monitor renal function and electrolytes closely. (3) Bronchitis Current Visit: Yes Status: Acute Assessment and plan: - CT chest on 08/04/17 found no evidence of pneumonia. - Given patient's shortness of breath and cough in the setting of possible immunosuppression from recent chemotherapy, will continue to treat with cefepime and levofloxacin. (4) Small cell lung cancer, right upper lobe Current Visit: Yes Status: Chronic Assessment and plan: - Limited stage small cell lung cancer of right upper lobe with last chemotherapy and radiation therapy on 08/03/17 per oncology note. (5) New onset a-fib Current Visit: Yes Status: Acute Assessment and plan: - Likely related to severe sepsis on initial presentation. - Currently rate controlled. Continue metoprolol. - Continue telemetry monitoring. (6) HTN (hypertension) Current Visit: No Status: Chronic Assessment and plan: - Continue metoprolol. Qualifiers: Hypertension type: essential hypertension Qualified Code(s): I10 - Essential (primary) hypertension (7) Hyperlipidemia Current Visit: No Status: Chronic Assessment and plan: - Continue simvastatin. Qualifiers: Hyperlipidemia type: pure hypercholesterolemia Qualified Code(s): E78.00 - Pure hypercholesterolemia, unspecified (8) Hypothyroidism Current Visit: No Status: Chronic Assessment and plan: - Continue home dose Synthroid. Qualifiers: Hypothyroidism type: unspecified Qualified Code(s): E03.9 - Hypothyroidism , unspecified (9) DVT prophylaxis Current Visit: No Status: Acute Assessment and plan: - On SQ heparin at this time. Consider switch to Lovenox if renal function improves. - Time Spent With Patient Total time spent is greater than 50% in coordination of care (as documented) at patient's floor/unit and/or counseling patient: - Subjective Interval history: Patient was seen and examined this morning. Patient reports feeling better compared to yesterday and denies fever, chills, chest pain, abdominal pain. - Constitutional Vitals: Temp Pulse Resp BP Pulse Ox 98.8 F 109 18 105/88 99 08/05/17 08:00 08/05/17 08:00 08/05/17 08:00 08/05/17 08:00 08/05/17 08:00 General appearance: Present: cooperative, mild distress, A&O X 3, answers questions appropriately - Head Head exam: Present: normal inspection - Eye Eye exam: Present: EOMI - Neck Neck exam general surgery: Present: normal inspection, trachea midline - Respiratory Respiratory exam: Present: CTAB - Cardiovascular Cardiovascular exam: Present: tachycardia - GI/Abdominal GI/Abdominal exam: Present: normal bowel sounds, soft. Absent: tenderness - Extremities Exam Extremities exam: Absent: cyanotic, pedal edema - Neurological Exam Neurological exam: Present: alert, no focal deficits. Absent: facial droop, speech deficit - Skin Skin exam: Present: dry, warm Internal Medicine: Result - Labs CBC & Chem 7: 08/05/17 01:46 08/05/17 01:46 Labs: Short CBC 08/05/17 Range/Units 01:46 WBC 7.1 (4.3-11.1) K/mcL Hgb 9.2 L (11.5-15.4) g/dL Hct 27.2 L (35.3-44.9) % Plt Count 189 (140-400) K/mcL BMP 08/05/17 01:46 Sodium 129 L Potassium 4.6 Chloride 100 Carbon Dioxide 22 L BUN 23 Creatinine 1.23 H Glucose 118 H Calcium 7.5 L Consult Discharge Plan - Plan Referrals: Scott Shine DO [Primary Care Provider] - <Guillermo Champagne - Last Filed: 08/05/17 19:12> Date of Encounter: 08/05/17 - Assessment and plan (1) Acute bronchitis Current Visit: Yes Status: Suspected Qualifiers: Bronchitis organism: Streptococcus Qualified Code(s): J20.2 - Acute bronchitis due to streptococcus (2) Severe sepsis Current Visit: Yes Status: Acute (3) Atrial fibrillation Current Visit: Yes Status: Acute Qualifiers: Atrial fibrillation type: persistent Qualified Code(s): I48.1 - Persistent atrial fibrillation (4) HTN (hypertension) Current Visit: No Status: Chronic Qualifiers: Hypertension type: essential hypertension Qualified Code(s): I10 - Essential (primary) hypertension (5) Hyperlipidemia Current Visit: No Status: Chronic Qualifiers: Hyperlipidemia type: mixed hyperlipidemia Qualified Code(s): E78.2 - Mixed hyperlipidemia (6) Hypothyroidism Current Visit: No Status: Chronic Qualifiers: Hypothyroidism type: acquired Qualified Code(s): E03.9 - Hypothyroidism, unspecified (7) Small cell lung cancer Current Visit: Yes Status: Chronic - Time Spent With Patient Total time spent is greater than 50% in coordination of care (as documented) at patient's floor/unit and/or counseling patient: - Constitutional Vitals: Temp Pulse Resp BP Pulse Ox 99.7 F H 101 16 155/107 100 08/05/17 15:08 08/05/17 15:08 08/05/17 15:08 08/05/17 15:08 08/05/17 15:08 Internal Medicine: Result - Labs CBC & Chem 7: 08/05/17 01:46 08/05/17 01:46 Labs: Short CBC 08/05/17 Range/Units 01:46 WBC 7.1 (4.3-11.1) K/mcL Hgb 9.2 L (11.5-15.4) g/dL Hct 27.2 L (35.3-44.9) % Plt Count 189 (140-400) K/mcL BMP 08/05/17 01:46 Sodium 129 L Potassium 4.6 Chloride 100 Carbon Dioxide 22 L BUN 23 Creatinine 1.23 H Glucose 118 H Calcium 7.5 L - Attending Attestation I examined this patient and my medical decision-making was reviewed with the Resident Physician on 08/05/17. I agree with the documented findings, disposition and treatment plan as described except to the extent set forth below. Ms Scruggs is currently admitted for severe sepsis presumed due to respiratory infection and new a fib. She remains moderate to high risk due to potential for worsening clinical and respiratory status. Ms Scruggs is still tachycardic. Her BP is up as well. Her temperature has decreased though she still has cough. No CP. No GI issues. Exam alert Mild distress Mucus membranes dry Heart irreg and tachy Lungs clear at this time Abd soft I/P 1. New a fib/flutter 2. Bronchitis 3. Severe sepsis Further diagnoses and plan as above.
[2017-08-05] MEDS ORDERED: *HR* Metoprolol 5 MG/5 ML VIAL IVP PRN (18:59)
[2017-08-05] MEDS: *HR* Enoxaparin 100 MG/ML SYRINGE SQ SCH (23:04)
[2017-08-06 01:52] LABS: Basophils % 0.3 %; Eosinophils # 0.2 K/mcL (0.0-0.6); Eosinophils % 2.9 %; Hematocrit 26.2 % (35.3-44.9); Hemoglobin 9.1 g/dL (11.5-15.4); Immature Granulocytes % 1.5 % (0-4); Lymphocytes # 0.2 K/mcL (0.6-4.6); Lymphocytes % 3.4 %; Mean Corpuscular HGB Conc 34.7 g/dL (31.6-35.5); Mean Corpuscular Hemoglobin 30.4 pg (28.0-33.3); Mean Corpuscular Volume 87.6 fL (83.0-100.0); Mean Platelet Volume 10.4 fL (9.4-12.4); Monocytes # 0.3 K/mcL (0.0-1.3); Monocytes % 4.9 %; Neutrophils # 5.1 K/mcL (1.6-8.9); Platelet Count 174 K/mcL (140-400); Red Blood Count 2.99 M/mcL (3.82-4.97); Red Cell Distribution Width 14.1 % (11.5-14.5)
[2017-08-06 02:16] LABS: Calcium 7.9 mg/dL (8.6-10.3); Potassium 4.1 mEq/L (3.5-5.1)
[2017-08-06 02:21] LABS: Platelet Estimate Normal (Normal)
[2017-08-06] MEDS: *HR* Enoxaparin 100 MG/ML SYRINGE SQ SCH ×2 (05:45→17:48)
--- NOTE | 2017-08-06 09:40 | Internal Med Progress Note ---
<Yordan Velasquez - Last Filed: 08/06/17 13:41> Date of Encounter: 08/06/17 Time of Encounter: 08:30 - Assessment and plan (1) Severe sepsis Current Visit: Yes Status: Acute Assessment and plan: - 3 SIRS criteria (fever 103.3, tachycardia and tachycardia) with lactic acid 2.4 on initial presentation. - Unknown source of infection at this time. Suspected bronchitis given patient' s shortness of breath and cough with no radiographic evidence of pneumonia. - Negative respiratory infection panel, urine antigens for S. pneumoniae or Legionella. - UA negative of nitrite and leukocyte esterase with no bacteria seen. - Blood cultures no growth to date. - Improves as tachypnea and lactic acidosis resolved. - Continue IV cefepime (Day 3) and levofloxacin (Day 3). May de-escalate to levofloxacin only tomorrow if patient continues to improve clinically. - Continue hydration with IV NS. - Continue close monitoring. (2) Bronchitis Current Visit: Yes Status: Acute Assessment and plan: - CT chest on 08/04/17 found no evidence of pneumonia. - Given patient's shortness of breath and cough in the setting of possible immunosuppression from recent chemotherapy, will continue to treat with cefepime and levofloxacin. (3) JUAN (acute kidney injury) Current Visit: Yes Status: Acute Assessment and plan: - SCr 1.23 / eGFR 43 on 08/05/17, worsen compared to SCr 0.82 / eGFR > 60 on admission. - Likely secondary to severe sepsis and Lasix use. - Slightly improves as SCr 1.17 / eGFR 46 today - Continue to hold diuresis and hydration with IV fluid. - Avoid nephrotoxin. - Continue to monitor renal function and electrolytes closely. (4) New onset a-fib Current Visit: Yes Status: Acute Assessment and plan: - Likely related to severely dilated left atrium (as shown on echo on 08/04/17) and precipitated by severe sepsis picture. - CHADS-VASc score = 3 indicates for anticoagulation. - Currently rate controlled. Continue metoprolol. - Continue Lovenox for anticoagulation. Anticoagulation options were discussed with patient and patient prefers NOAC over Coumadin. Will have consult social service for assistance. - Continue telemetry monitoring. (5) Small cell lung cancer, right upper lobe Current Visit: Yes Status: Chronic Assessment and plan: - Limited stage small cell lung cancer of right upper lobe with last chemotherapy and radiation therapy on 08/03/17 per oncology note. (6) HTN (hypertension) Current Visit: No Status: Chronic Assessment and plan: - Continue metoprolol. Qualifiers: Hypertension type: essential hypertension Qualified Code(s): I10 - Essential (primary) hypertension (7) Hyperlipidemia Current Visit: No Status: Chronic Assessment and plan: - Continue simvastatin. Qualifiers: Hyperlipidemia type: mixed hyperlipidemia Qualified Code(s): E78.2 - Mixed hyperlipidemia (8) Hypothyroidism Current Visit: No Status: Chronic Assessment and plan: - Continue home dose Synthroid. Qualifiers: Hypothyroidism type: acquired Qualified Code(s): E03.9 - Hypothyroidism, unspecified (9) DVT prophylaxis Current Visit: No Status: Acute Assessment and plan: - Currently on Lovenox 1 mg/kg SQ q12H. - Time Spent With Patient Total time spent is greater than 50% in coordination of care (as documented) at patient's floor/unit and/or counseling patient: - Subjective Interval history: Patient was seen and examined this morning. Patient reports feeling much better compared to yesterday. Patient denies fever, chills, chest pain, abdominal pain , nausea, vomiting, diarrhea. - Constitutional Vitals: Temp Pulse Resp BP Pulse Ox 98.5 F 86 16 152/83 99 08/06/17 07:04 08/06/17 07:04 08/06/17 07:04 08/06/17 07:04 08/06/17 07:45 General appearance: Present: cooperative, A&O X 3, no acute distress, answers questions appropriately - Head Head exam: Present: normal inspection - Eye Eye exam: Present: EOMI - Neck Neck exam general surgery: Present: normal inspection, trachea midline - Respiratory Respiratory exam: Present: rhonchi - Cardiovascular Cardiovascular exam: Present: RRR, +S1, +S2 - GI/Abdominal GI/Abdominal exam: Present: normal bowel sounds, soft. Absent: tenderness - Extremities Exam Extremities exam: Absent: cyanotic, pedal edema - Neurological Exam Neurological exam: Present: alert, no focal deficits. Absent: facial droop, speech deficit - Skin Skin exam: Present: dry, warm Internal Medicine: Result - Labs CBC & Chem 7: 08/06/17 01:19 08/06/17 01:19 Labs: Short CBC 08/06/17 Range/Units 01:19 WBC 5.9 (4.3-11.1) K/mcL Hgb 9.1 L (11.5-15.4) g/dL Hct 26.2 L (35.3-44.9) % Plt Count 174 (140-400) K/mcL Neutrophils # 5.1 (1.6-8.9) K/mcL BMP 08/06/17 01:19 Sodium 129 L Potassium 4.1 Chloride 98 Carbon Dioxide 24 BUN 22 Creatinine 1.17 Glucose 126 H Calcium 7.9 L Consult Discharge Plan - Plan Referrals: Scott Shine DO [Primary Care Provider] - Prescriptions: Rivaroxaban [Xarelto] 20 mg PO DAILY #30 tablet <Guillermo Champagne - Last Filed: 08/06/17 18:10> Date of Encounter: 08/06/17 - Assessment and plan (1) Acute bronchitis Current Visit: Yes Status: Suspected Qualifiers: Bronchitis organism: Streptococcus Qualified Code(s): J20.2 - Acute bronchitis due to streptococcus (2) Severe sepsis Current Visit: Yes Status: Resolved (3) Atrial fibrillation Current Visit: Yes Status: Acute Qualifiers: Atrial fibrillation type: persistent Qualified Code(s): I48.1 - Persistent atrial fibrillation (4) HTN (hypertension) Current Visit: No Status: Chronic Qualifiers: Hypertension type: essential hypertension Qualified Code(s): I10 - Essential (primary) hypertension (5) Hyperlipidemia Current Visit: No Status: Chronic Qualifiers: Hyperlipidemia type: mixed hyperlipidemia Qualified Code(s): E78.2 - Mixed hyperlipidemia (6) Hypothyroidism Current Visit: No Status: Chronic Qualifiers: Hypothyroidism type: acquired Qualified Code(s): E03.9 - Hypothyroidism, unspecified (7) Small cell lung cancer Current Visit: Yes Status: Chronic - Time Spent With Patient Total time spent is greater than 50% in coordination of care (as documented) at patient's floor/unit and/or counseling patient: - Constitutional Vitals: Temp Pulse Resp BP Pulse Ox 98.3 F 118 20 133/93 92 08/06/17 15:54 08/06/17 15:54 08/06/17 15:54 08/06/17 15:54 08/06/17 15:54 Internal Medicine: Result - Labs CBC & Chem 7: 08/06/17 01:19 08/06/17 01:19 Labs: Short CBC 08/06/17 Range/Units 01:19 WBC 5.9 (4.3-11.1) K/mcL Hgb 9.1 L (11.5-15.4) g/dL Hct 26.2 L (35.3-44.9) % Plt Count 174 (140-400) K/mcL Neutrophils # 5.1 (1.6-8.9) K/mcL BMP 08/06/17 01:19 Sodium 129 L Potassium 4.1 Chloride 98 Carbon Dioxide 24 BUN 22 Creatinine 1.17 Glucose 126 H Calcium 7.9 L - Impressions Impressions Chest X-Ray 08/06/17 09:30 IMPRESSION: No evidence of acute cardiopulmonary disease. D/ / Montana Noe MD / Montana Noe MD Interpreting Provider: Montana Noe MD - Attending Attestation I examined this patient and my medical decision-making was reviewed with the Resident Physician on 08/06/17. I agree with the documented findings, disposition and treatment plan as described except to the extent set forth below. Ms Scruggs is currently admitted for sepsis related to presumed pneumonia. A fib is new. She remains moderate to high risk due to potential for worsening clinical status. Ms Scruggs is feeling a little better. She is still coughing a lot - productive of white sputum. Heart rate better this AM. No fever noted. No diarrhea. Exam alert Comfortable Mucus membranes dry Heart irreg - not tachy Lungs with rhonchi bilaterally Abd soft I/P 1. Sepsis 2. Presumed pneumonia versus bronchitis Further diagnoses and plan as above.
[2017-08-06] MEDS: Metoprolol XL (24 HR) Succ 25 MG TAB.ER.24H PO SCH (10:44)
[2017-08-06] MEDS: Cefepime HCl 2,000 MG in Water for inj. (sterile) 20 ML 20 ML IVP SCH ×2 (10:44→19:46)
[2017-08-06] MEDS: Nystatin SUSP 5 ML UD.LIQ PO SCH ×4 (10:44→19:53)
[2017-08-06] MEDS: Levofloxacin 750 MG/150 ML 750 MG/150 ML BAG IVPB SCH (10:46)
[2017-08-07 04:36] LABS: Basophils # 0.1 K/mcL (0.0-0.2); Basophils % 1.1 %; Eosinophils # 0.1 K/mcL (0.0-0.6); Eosinophils % 2.6 %; Hemoglobin 10.4 g/dL (11.5-15.4); Immature Granulocytes % 1.1 % (0-4); Lymphocytes # 0.5 K/mcL (0.6-4.6); Lymphocytes % 9.8 %; Mean Corpuscular HGB Conc 34.7 g/dL (31.6-35.5); Mean Corpuscular Hemoglobin 30.1 pg (28.0-33.3); Mean Platelet Volume 10.3 fL (9.4-12.4); Monocytes # 0.2 K/mcL (0.0-1.3); Monocytes % 3.7 %; Neutrophils # 3.7 K/mcL (1.6-8.9); Platelet Count 199 K/mcL (140-400); Red Blood Count 3.45 M/mcL (3.82-4.97); Red Cell Distribution Width 13.6 % (11.5-14.5); Segmented Neutrophils % 81.7 %
[2017-08-07 05:03] LABS: BUN/Creatinine Ratio 18 (6-26); Blood Urea Nitrogen 18 mg/dL (8-23); Calcium 8.4 mg/dL (8.6-10.3); Carbon Dioxide 25 mEq/L (23-29); Chloride 100 mEq/L (98-107); Glucose 90 mg/dL (70-105); Osmolality,Calculated 275 (280-300); Sodium 132 mEq/L (136-145); eGFR For African Americans > 60 (> 60); eGFR For Non-African Americans 55 (> 60)
[2017-08-07] MEDS: *HR* Enoxaparin 100 MG/ML SYRINGE SQ SCH (05:21)
[2017-08-07] MEDS: Cefepime HCl 2,000 MG in Water for inj. (sterile) 20 ML 20 ML IVP SCH (08:17)
[2017-08-07] MEDS: Nystatin SUSP 5 ML UD.LIQ PO SCH ×4 (08:18→19:54)
[2017-08-07] MEDS: Levofloxacin 750 MG/150 ML 750 MG/150 ML BAG IVPB SCH (08:18)
[2017-08-07] MEDS: Metoprolol XL (24 HR) Succ 25 MG TAB.ER.24H PO SCH (08:18)
--- NOTE | 2017-08-07 10:06 | Internal Med Progress Note ---
<Yordan Velasquez - Last Filed: 08/07/17 13:01> Date of Encounter: 08/07/17 Time of Encounter: 08:15 - Assessment and plan (1) Severe sepsis Current Visit: Yes Status: Resolved Assessment and plan: - 3 SIRS criteria (fever 103.3, tachycardia and tachycardia) with lactic acid 2.4 on initial presentation. - Unknown source of infection at this time. Suspected bronchitis given patient' s shortness of breath and cough with no radiographic evidence of pneumonia. - Negative respiratory infection panel, urine antigens for S. pneumoniae or Legionella. - UA negative of nitrite and leukocyte esterase with no bacteria seen. - Blood cultures no growth to date. - Improves as tachypnea and lactic acidosis resolved. - Continue levofloxacin (Day 4) and discontinue cefepime. Consider possible discharge with levofloxacin if patient continues to do well on it.. - Continue hydration with IV NS. - Continue close monitoring. (2) Bronchitis Current Visit: Yes Status: Acute Assessment and plan: - CT chest on 08/04/17 found no evidence of pneumonia. - Given patient's shortness of breath and cough in the setting of possible immunosuppression from recent chemotherapy, will continue to treat with levofloxacin. (3) JUAN (acute kidney injury) Current Visit: Yes Status: Acute Assessment and plan: - SCr 1.23 / eGFR 43 on 08/05/17, worsen compared to SCr 0.82 / eGFR > 60 on admission. - Likely secondary to severe sepsis and Lasix use. - Continue to improve as SCr 0.99 / eGFR 55 today - Continue to hold diuresis. Hydration with IV fluid. - Avoid nephrotoxin. - Continue to monitor renal function and electrolytes. (4) New onset a-fib Current Visit: Yes Status: Acute Assessment and plan: - Likely related to severely dilated left atrium (as shown on echo on 08/04/17) and precipitated by severe sepsis picture. - CHADS-VASc score = 3 indicates for anticoagulation. - Currently rate controlled. Continue metoprolol. - Continue Lovenox for anticoagulation. Anticoagulation options were discussed with patient and patient prefers NOAC over Coumadin. Will have consult social service for assistance. - Continue telemetry monitoring. (5) Small cell lung cancer, right upper lobe Current Visit: Yes Status: Chronic Assessment and plan: - Limited stage small cell lung cancer of right upper lobe with last chemotherapy and radiation therapy on 08/03/17 per oncology note. (6) HTN (hypertension) Current Visit: No Status: Chronic Assessment and plan: - Continue metoprolol. Qualifiers: Hypertension type: essential hypertension Qualified Code(s): I10 - Essential (primary) hypertension (7) Hyperlipidemia Current Visit: No Status: Chronic Assessment and plan: - Continue simvastatin. Qualifiers: Hyperlipidemia type: mixed hyperlipidemia Qualified Code(s): E78.2 - Mixed hyperlipidemia (8) Hypothyroidism Current Visit: No Status: Chronic Assessment and plan: - Continue home dose Synthroid. Qualifiers: Hypothyroidism type: acquired Qualified Code(s): E03.9 - Hypothyroidism, unspecified (9) DVT prophylaxis Current Visit: No Status: Acute Assessment and plan: - Currently on Lovenox 1 mg/kg SQ q12H. - Time Spent With Patient Total time spent is greater than 50% in coordination of care (as documented) at patient's floor/unit and/or counseling patient: - Subjective Interval history: Patient was seen and examined this morning. Patient continues to feel better. Patient denies fever, chills, chest pain, abdominal pain, nausea, vomiting, diarrhea, dysuria. - Constitutional Vitals: Temp Pulse Resp BP Pulse Ox 97.9 F 84 16 120/77 97 08/07/17 07:22 08/07/17 07:22 08/07/17 07:22 08/07/17 07:22 08/07/17 07:50 General appearance: Present: cooperative, A&O X 3, no acute distress, answers questions appropriately - Head Head exam: Present: normal inspection - Eye Eye exam: Present: EOMI - Neck Neck exam general surgery: Present: normal inspection, trachea midline - Respiratory Respiratory exam: Present: CTAB - Cardiovascular Cardiovascular exam: Present: RRR, +S1, +S2 - GI/Abdominal GI/Abdominal exam: Present: normal bowel sounds, soft. Absent: tenderness - Extremities Exam Extremities exam: Absent: cyanotic, pedal edema - Neurological Exam Neurological exam: Present: alert, no focal deficits. Absent: facial droop, speech deficit - Skin Skin exam: Present: dry, warm Internal Medicine: Result - Labs CBC & Chem 7: 08/07/17 04:13 08/07/17 04:13 Labs: Short CBC 08/07/17 Range/Units 04:13 WBC 4.6 (4.3-11.1) K/mcL Hgb 10.4 L (11.5-15.4) g/dL Hct 30.0 L (35.3-44.9) % Plt Count 199 (140-400) K/mcL Neutrophils # 3.7 (1.6-8.9) K/mcL BMP 08/07/17 04:13 Sodium 132 L Potassium 4.0 Chloride 100 Carbon Dioxide 25 BUN 18 Creatinine 0.99 Glucose 90 Calcium 8.4 L - Impressions Impressions Chest X-Ray 08/06/17 09:30 IMPRESSION: No evidence of acute cardiopulmonary disease. D/ / Montana Noe MD / Montana Noe MD Interpreting Provider: Montana Noe MD Consult Discharge Plan - Plan Referrals: Scott Shine DO [Primary Care Provider] - Prescriptions: Rivaroxaban [Xarelto] 20 mg PO DAILY #30 tablet <Guillermo Champagne - Last Filed: 08/07/17 17:11> Date of Encounter: 08/07/17 - Assessment and plan (1) Acute bronchitis Current Visit: Yes Status: Suspected Qualifiers: Bronchitis organism: Streptococcus Qualified Code(s): J20.2 - Acute bronchitis due to streptococcus (2) Severe sepsis Current Visit: Yes Status: Resolved (3) Atrial fibrillation Current Visit: Yes Status: Chronic Qualifiers: Atrial fibrillation type: chronic Qualified Code(s): I48.2 - Chronic atrial fibrillation (4) HTN (hypertension) Current Visit: No Status: Chronic Qualifiers: Hypertension type: essential hypertension Qualified Code(s): I10 - Essential (primary) hypertension (5) Hyperlipidemia Current Visit: No Status: Chronic Qualifiers: Hyperlipidemia type: mixed hyperlipidemia Qualified Code(s): E78.2 - Mixed hyperlipidemia (6) Hypothyroidism Current Visit: No Status: Chronic Qualifiers: Hypothyroidism type: acquired Qualified Code(s): E03.9 - Hypothyroidism, unspecified (7) Small cell lung cancer Current Visit: Yes Status: Chronic - Time Spent With Patient Total time spent is greater than 50% in coordination of care (as documented) at patient's floor/unit and/or counseling patient: - Constitutional Vitals: Temp Pulse Resp BP Pulse Ox 97.5 F L 98 16 132/73 98 08/07/17 15:57 08/07/17 15:57 08/07/17 15:57 08/07/17 15:57 08/07/17 15:57 Internal Medicine: Result - Labs CBC & Chem 7: 08/07/17 04:13 08/07/17 04:13 Labs: Short CBC 08/07/17 Range/Units 04:13 WBC 4.6 (4.3-11.1) K/mcL Hgb 10.4 L (11.5-15.4) g/dL Hct 30.0 L (35.3-44.9) % Plt Count 199 (140-400) K/mcL Neutrophils # 3.7 (1.6-8.9) K/mcL BMP 08/07/17 04:13 Sodium 132 L Potassium 4.0 Chloride 100 Carbon Dioxide 25 BUN 18 Creatinine 0.99 Glucose 90 Calcium 8.4 L - Attending Attestation I examined this patient and my medical decision-making was reviewed with the Resident Physician on 08/07/17. I agree with the documented findings, disposition and treatment plan as described except to the extent set forth below. Ms Scruggs is currently admitted for severe sepsis related to bronchitis. Her atrial fibrillation is rate controlled. She remains moderate to high risk due to potential for worsening clinical status. Ms Scruggs is continuing to slowly improve. She is off oxygen. No fever or chills. No GI issues. Heart rate is controlled now. Exam Alert. Comfortable. No wheeze Heart irreg but not tachy I/P 1. Severe sepsis resolved 2. Bronchitis 3. A fib Further diagnoses and plan as above.
[2017-08-07] MEDS ORDERED: *HR* Rivaroxaban 10 MG TABLET PO SCH (17:00)
[2017-08-08 05:26] LABS: Eosinophils # 0.1 K/mcL (0.0-0.6); Eosinophils % 1.9 %; Hematocrit 28.9 % (35.3-44.9); Hemoglobin 10.2 g/dL (11.5-15.4); Immature Granulocytes % 2.9 % (0-4); Lymphocytes # 0.4 K/mcL (0.6-4.6); Lymphocytes % 8.8 %; Mean Corpuscular HGB Conc 35.3 g/dL (31.6-35.5); Mean Corpuscular Hemoglobin 30.9 pg (28.0-33.3); Mean Corpuscular Volume 87.6 fL (83.0-100.0); Mean Platelet Volume 10.3 fL (9.4-12.4); Monocytes # 0.2 K/mcL (0.0-1.3); Monocytes % 5.5 %; Neutrophils # 3.4 K/mcL (1.6-8.9); Nucleated Red Blood Cells 0.7 /100 WBC (0); Platelet Count 203 K/mcL (140-400); Red Cell Distribution Width 13.4 % (11.5-14.5); Segmented Neutrophils % 79.9 %
[2017-08-08 05:33] LABS: BUN/Creatinine Ratio 16 (6-26); Blood Urea Nitrogen 14 mg/dL (8-23); Calcium 8.2 mg/dL (8.6-10.3); Carbon Dioxide 27 mEq/L (23-29); Chloride 98 mEq/L (98-107); Glucose 82 mg/dL (70-105); Osmolality,Calculated 272 (280-300); Potassium 3.9 mEq/L (3.5-5.1); Sodium 131 mEq/L (136-145); eGFR For African Americans > 60 (> 60); eGFR For Non-African Americans > 60 (> 60)
[2017-08-08 07:27] VITALS: BP 116/74
[2017-08-08] MEDS: Nystatin SUSP 5 ML UD.LIQ PO SCH (09:15)
[2017-08-08] MEDS: Metoprolol XL (24 HR) Succ 25 MG TAB.ER.24H PO SCH (09:16)
--- NOTE | 2017-08-08 09:19 | Discharge Summary ---
<Guillermo Champagne - Last Filed: 08/08/17 18:04> Date of Encounter: 08/08/17 - Discharge Diagnosis (1) Acute bronchitis Priority: Primary Status: Suspected Qualifiers: Bronchitis organism: Streptococcus Qualified Code(s): J20.2 - Acute bronchitis due to streptococcus (2) Severe sepsis Priority: Primary Status: Resolved (3) Atrial fibrillation Priority: Secondary Status: Chronic Qualifiers: Atrial fibrillation type: chronic Qualified Code(s): I48.2 - Chronic atrial fibrillation (4) HTN (hypertension) Priority: Secondary Status: Chronic Qualifiers: Hypertension type: essential hypertension Qualified Code(s): I10 - Essential (primary) hypertension (5) Hyperlipidemia Priority: Secondary Status: Chronic Qualifiers: Hyperlipidemia type: mixed hyperlipidemia Qualified Code(s): E78.2 - Mixed hyperlipidemia (6) Hypothyroidism Priority: Secondary Status: Chronic Qualifiers: Hypothyroidism type: acquired Qualified Code(s): E03.9 - Hypothyroidism, unspecified (7) Small cell lung cancer Priority: Secondary Status: Chronic Hospital course: Ms. Scruggs is a 71 year old female - Time Spent with Patient Total time spent providing and/or coordinating discharge services: 38min - Discharge Medications Prescriptions: levoFLOXacin [Levofloxacin] 750 mg PO DAILY #6 tablet Rivaroxaban [Xarelto] 20 mg PO DAILY #30 tablet Home Medications: Levothyroxine Sodium [Levoxyl] 50 mcg PO QAM 06/10/17 [History] Metoprolol XL (24 HR) Succ [Toprol Xl] 25 mg PO DAILY 06/10/17 [History] Maysel-3/Dha/Epa/Fish Oil [Fish Oil 1,000 mg Softgel] 2 cap PO BID 06/10/17 [ History] Simvastatin [Zocor] 40 mg PO QPM 06/10/17 [History] Albuterol Sulfate [Albuterol Inhaler] 2 puff IH Q4HR PRN #1 hfa.aer.ad 06/25/17 [Rx] Promethazine [Phenergan] 25 mg PO Q6HR PRN #30 tablet 07/02/17 [Rx] Nystatin [Nystatin Suspension] 100,000 units PO QID #120 ml 07/19/17 [Rx] Omeprazole [PriLOSEC] 20 mg PO DAILY #30 capsule. 07/27/17 [Rx] Rivaroxaban [Xarelto] 20 mg PO DAILY #30 tablet 08/06/17 [Rx] levoFLOXacin [Levofloxacin] 750 mg PO DAILY #6 tablet 08/08/17 [Rx] Allergies/Adverse Reactions: 3 Allergy/AdvReac Type Severity Reaction Status Date / Time Amoxicillin [From Augmentin] Allergy Rash Verified 07/26/17 13:07 peace Allergy Rash Verified 07/26/17 13:07 clavulanic acid Allergy Rash Verified 07/26/17 13:07 [From Augmentin] diazepam Allergy Rash Verified 07/26/17 13:07 egg Allergy Rash Verified 07/26/17 13:07 ibuprofen Allergy Rash Verified 07/26/17 13:07 peanut Allergy Anaphylaxis Verified 07/26/17 13:07 Penicillins Allergy Rash Verified 07/26/17 13:07 Cyclobenzaprine AdvReac Numbness Verified 07/26/17 13:07 prednisone AdvReac Gastrointestinal Verified 07/26/17 13:07 Upset metals Allergy Rash Uncoded 07/26/17 13:07 Date of admission: 08/04/17 04:18 Primary care physician: Harley Edwards Consults: 08/06/17 13:48 Consult to Manager Digital [CONS] Routine Reason for SW Consult: Appreciate nagy check for NOAC. - Constitutional Vitals: Temp Pulse Resp BP Pulse Ox 98.0 F 93 16 116/74 97 08/08/17 07:25 08/08/17 07:25 08/08/17 07:25 08/08/17 07:25 08/08/17 07:30 - Patient Status Disposition: Home, Self-Care Condition: Fair - Discharge Instructions Follow Up With: [facility] [place] [Provider Group] (Follow up regarding her current chemotherapy.) Scott Shine DO [Primary Care Provider] - (Online request submitted ) Additional Instructions: Please take prescribed levofloxacin 750 mg by mouth daily for 6 more days. Please continue prescribed Xarelto. Please follow up with your primary care physician Dr. Shine within a week regarding your hospitalization for sepsis secondary to likely bronchitis and possible referral to cardiology for atrial fibrillation work-up. - Attending Attestation I examined this patient and my medical decision-making was reviewed with the Resident Physician on 08/08/17. I agree with the documented findings, disposition and treatment plan as described except to the extent set forth below. Ms Kael has been admitted for acute bronchitis and sepsis. She is doing much better. She ambulated without oxygen last evening. She feels well today and is afebrile. She is ready for discharge home. Exam alert Comfortable Mucus membranes dry Lungs with scant crackles Heart irreg but not tachy Plan D/C home today Complete abx Follow up with PCP and oncology Will need card follow up in future. <Yordan Velasquez - Last Filed: 08/08/17 18:42> Date of Encounter: 08/08/17 Time of Encounter: 08:30 - Discharge Diagnosis (1) Severe sepsis Priority: Primary Status: Resolved (2) Bronchitis Priority: Primary Status: Acute (3) JUAN (acute kidney injury) Priority: Secondary Status: Acute (4) New onset a-fib Priority: Secondary Status: Acute (5) Small cell lung cancer, right upper lobe Priority: Secondary Status: Chronic (6) HTN (hypertension) Priority: Secondary Status: Chronic Qualifiers: Hypertension type: essential hypertension Qualified Code(s): I10 - Essential (primary) hypertension (7) Hyperlipidemia Priority: Secondary Status: Chronic Qualifiers: Hyperlipidemia type: mixed hyperlipidemia Qualified Code(s): E78.2 - Mixed hyperlipidemia (8) Hypothyroidism Priority: Secondary Status: Chronic Qualifiers: Hypothyroidism type: acquired Qualified Code(s): E03.9 - Hypothyroidism, unspecified Hospital course: Ms. Scrugsg is a 71 year old female with PMH of HTN, HLD, hyothyroidism and Limited stage small cell lung cancer of right upper lobe with last chemotherapy and radiation therapy on 08/03/17. Patient presented to [place] ED with complaint of fever as high ass 103.3 and worsening shortness of breath and cough. Patient was noted to have fever, A-fib RVR and tachypnea with lactic acid 2.4 on initial presentation. Patient was admitted on 08/04/17 for severe sepsis likely secondary to bronchitis and new onset A-fib. Patient was started on IV vancomycin (one dose), cefepime (4 days) and levofloxacin along with hydration with IV NS. Patient's respiratory status improves since and lactic acid decreased to 1.4. Echo on 08/04/17 found LVEF 65%, indeterminate diastolic function and severely dilated left atrium, which may contribute to patient's A- fib. CHADS-VASc score = 3 indicates the need of anticoagulation. Patient was initially started on Lovenox then switch to Xarelto. Given patient improves clinically and remains afebrile and hemodynamically stable, patient can be discharged home with 6 more days of levofloxacin to finish total 10-day course of treatment. Patient will continue prescribed Xarelto for anticoagulation. Patient was instructed to follow up with her primary care physician Dr. Shine within a week regarding her hospitalization and possible referral to cardiology for atrial fibrillation work-up. Patient was also recommended to contact her oncologist office regarding follow-up. Patient and her expressed their understanding and agreement with the discharge plan. All questions were answered. Discharge discussed with: patient, family - Time Spent with Patient Total time spent providing and/or coordinating discharge services: Greater than 30 minutes (42 minutes) Date of admission: 08/04/17 04:18 Primary care physician: Harley Edwards Consults: 08/06/17 13:48 Consult to Manager Digital [CONS] Routine Reason for SW Consult: Appreciate nagy check for NOAC. Discharging clinician: Yordan Velasquez Anticipated date of discharge: 08/08/17 - Constitutional Vitals: Temp Pulse Resp BP Pulse Ox 98.0 F 93 16 116/74 97 08/08/17 07:25 08/08/17 07:25 08/08/17 07:25 08/08/17 07:25 08/08/17 07:30 General appearance: Present: cooperative, A&O X 3, no acute distress, answers questions appropriately - Head Head exam: Present: normal inspection - Eye Eye exam: Present: EOMI - Neck Neck exam general surgery: Present: normal inspection, trachea midline - Respiratory Respiratory exam: Present: CTAB - Cardiovascular Cardiovascular exam: Present: RRR, +S1, +S2 - GI/Abdominal GI/Abdominal exam: Present: normal bowel sounds, soft. Absent: tenderness - Extremities Exam Extremities exam: Absent: cyanotic, pedal edema - Neurological Exam Neurological exam: Present: alert, no focal deficits. Absent: facial droop, speech deficit - Skin Skin exam: Present: dry, warm - Patient Status Functional capacity at discharge: independent ambulation Overall status at discharge: patient is progressing back to baseline - Diet and Activity Activity: increase activity as tolerated Diet: regular diet
[2017-08-08] MEDS ORDERED: levoFLOXacin 750 MG TABLET PO ONE (09:24)
[2017-08-08] MEDS: Levofloxacin 750 MG/150 ML 750 MG/150 ML BAG IVPB SCH (09:24)
== END 2017-08-08 10:35 | disposition home or self-care (01) | DRG 872 ==
LOC: EMEROO 23:36 → 2SOUTHHOLD 08-04 04:18 → 2ANU 08-06 18:55
PROVIDERS: ADMIT Family Medicine; ATTEND Internal Medicine

== ENCOUNTER 2021-03-26 21:16 | Inpatient (IN) ==
[2021-03-26] MEDS ORDERED: 0.9 % Sodium Chloride 1,000 ML IVC ONE (21:36)
[2021-03-26 22:22] LABS: Basophils # 0.1 K/mcL (0.0-0.2); Basophils % 0.4 %; Eosinophils # 0.1 K/mcL (0.0-0.6); Eosinophils % 0.9 %; Hematocrit 36.7 % (35.3-44.9); Hemoglobin 12.2 g/dL (11.5-15.4); Immature Granulocytes % 1.1 % (0-4); Lymphocytes # 1.1 K/mcL (0.6-4.6); Lymphocytes % 9.5 %; Mean Corpuscular HGB Conc 33.2 g/dL (31.6-35.5); Mean Corpuscular Hemoglobin 31.1 pg (28.0-33.3); Mean Corpuscular Volume 93.6 fL (83.0-100.0); Mean Platelet Volume 9.4 fL (9.4-12.4); Monocytes # 0.9 K/mcL (0.0-1.3); Neutrophils # 9.2 K/mcL (1.6-8.9); Platelet Count 370 K/mcL (140-400); Red Blood Count 3.92 M/mcL (3.82-4.97); Red Cell Distribution Width 11.9 % (11.5-14.5); Segmented Neutrophils % 80.1 %; White Blood Count 11.5 K/mcL (4.3-11.1)
[2021-03-26 22:25] LABS: VBG Ionized Calcium 1.14 mmol/L (1.15-1.35)
[2021-03-26 22:29] LABS: INR 2.6; Prothrombin Time 28.8 Seconds (9.4-12.1)
[2021-03-26 22:31] LABS: Activated Partial Thrombo Time 44.9 Seconds (26.0-36.0)
[2021-03-26 22:44] LABS: Alanine Aminotransferase 20 Units/L (7-52); Albumin 3.6 g/dL (3.5-5.7); Albumin/Globulin Ratio 1.1 (1.1-2.2); Alkaline Phosphatase 82 Units/L (34-104); Aspartate Amino Transferase 16 Units/L (13-39); BUN/Creatinine Ratio 8 (6-26); Bilirubin,Direct 0.2 mg/dL (0.0-0.2); Bilirubin,Indirect 0.7 mg/dL (0.0-1.0); Bilirubin,Total 0.9 mg/dL (0.3-1.0); Blood Urea Nitrogen 10 mg/dL (8-23); Carbon Dioxide 25 mEq/L (23-29); Chloride 95 mEq/L (98-107); Creatine Kinase 25 Units/L (30-223); Globulin 3.3 g/dL (2.4-3.5); Glucose 127 mg/dL (70-105); Lipase 17 Units/L (11-82); Magnesium 1.8 mg/dL (1.6-2.6); Osmolality,Calculated 271 (280-300); Phosphorous 2.3 mg/dL (2.7-4.5); Sodium 130 mEq/L (136-145); Total Protein 6.9 g/dL (6.4-8.9); Troponin I < 0.03 ng/mL (< 0.04); eGFR For African Americans 51 (> 60); eGFR For Non-African Americans 42 (> 60)
[2021-03-26 22:57] LABS: Thyroid Stimulating Hormone 1.149 mcIU/mL (0.340-5.600)
[2021-03-26] MEDS ORDERED: cefTRIAXone 1,000 MG in 0.9 % Sodium Chloride Mini Bag 100 ML IVPB ONE (23:30)
[2021-03-26] MEDS ORDERED: Azithromycin 500 MG in 0.9 % Sodium Chloride 250 ML IVPB ONE (23:30)
[2021-03-27 00:17] LABS: Bacteria,Urine Few per hpf (None-Few); Bilirubin,Urine Negative (Negative); Blood,Urine Small (Negative); Clarity,Urine Turbid (Clear); Color,Urine Yellow (Yellow); Glucose,Urine (UA) Normal (Normal); Ketones,Urine Negative (Negative); Leukocyte Esterase,Urine Moderate (Negative); Mucus,Urine Few per lpf (None-Few); Nitrite,Urine Negative (Negative); PH,Urine 5.5 pH Units (5.0-8.0); Protein,Urine 200 mg/dL (Neg-Trace); Renal Epithelial Cells,Urine Few per hpf (None-Few); Specific Gravity,Urine 1.025 (1.010-1.025); Squamous Epithelial Cell,Urine Moderate per hpf (None-Few); Transitional Epi Cells,Urine Moderate per hpf (None-Few); Urobilinogen,Urine Normal (Normal); WBC,Urine 30-50 per hpf (0-3)
[2021-03-27 00:35] LABS: Adenovirus Not Detected (Not Detect); Bordetella Pertussis Not Detected (Not Detect); Chlamydophila pneumoniae Not Detected (Not Detect); Coronavirus 229E Not Detected (Not Detect); Coronavirus HKU1 Not Detected (Not Detect); Coronavirus NL63 Not Detected (Not Detect); Coronavirus OC43 Not Detected (Not Detect); Human Metapneumovirus Not Detected (Not Detect); Human Rhinovirus/Enterovirus Not Detected (Not Detect); Influenza A Subtype 2009 H1 Not Detected (Not Detect); Influenza B Not Detected (Not Detect); Mycoplasma pneumoniae Not Detected (Not Detect); Parainfluenza Virus 1 Not Detected (Not Detect); Parainfluenza Virus 2 Not Detected (Not Detect); Parainfluenza Virus 3 Not Detected (Not Detect); Parainfluenza Virus 4 Not Detected (Not Detect); Respiratory Syncytial Virus Not Detected (Not Detect); SARS-CoV-2 Not Detected (Not Detect)
[2021-03-27] MEDS ORDERED: Naloxone 0.4 MG/ML INJ IVP PRN (02:07)
[2021-03-27] MEDS ORDERED: Ondansetron 4 MG/2 ML VIAL IVP PRN (02:07)
[2021-03-27] MEDS ORDERED: GuaiFENesin Liq 200 MG/10 ML UDC PO PRN (04:50)
[2021-03-27] MEDS ORDERED: Benzonatate 100 MG CAPSULE PO PRN (04:50)
[2021-03-27] MEDS ORDERED: 0.9 % Sodium Chloride 1,000 ML IVC ONE (04:51)
[2021-03-27 05:20] LABS: Basophils % 0.4 %; Eosinophils # 0.1 K/mcL (0.0-0.6); Eosinophils % 0.9 %; Hematocrit 31.5 % (35.3-44.9); Lymphocytes # 1.4 K/mcL (0.6-4.6); Lymphocytes % 14.4 %; Mean Corpuscular HGB Conc 33.7 g/dL (31.6-35.5); Mean Corpuscular Hemoglobin 31.5 pg (28.0-33.3); Mean Corpuscular Volume 93.5 fL (83.0-100.0); Mean Platelet Volume 9.7 fL (9.4-12.4); Monocytes # 0.9 K/mcL (0.0-1.3); Monocytes % 8.6 %; Neutrophils # 7.4 K/mcL (1.6-8.9); Platelet Count 328 K/mcL (140-400); Red Blood Count 3.37 M/mcL (3.82-4.97); Red Cell Distribution Width 11.9 % (11.5-14.5); Segmented Neutrophils % 74.7 %; White Blood Count 9.9 K/mcL (4.3-11.1)
[2021-03-27 05:21] LABS: Hemoglobin 10.6 g/dL (11.5-15.4)
[2021-03-27 05:38] LABS: Albumin 3.1 g/dL (3.5-5.7); Albumin/Globulin Ratio 1.1 (1.1-2.2); Bilirubin,Total 0.6 mg/dL (0.3-1.0); Calcium 8.1 mg/dL (8.6-10.3); Globulin 2.7 g/dL (2.4-3.5); Phosphorous 4.3 mg/dL (2.7-4.5); Potassium 3.9 mEq/L (3.5-5.1); Total Protein 5.8 g/dL (6.4-8.9)
[2021-03-27] MEDS: *HR* Rivaroxaban 10 MG TABLET PO SCH (07:56)
[2021-03-27] MEDS: cefTRIAXone 1,000 MG in Water for inj. (sterile) 10 ML IVP SCH (07:57)
[2021-03-27] MEDS: GuaiFENesin/Codeine Oral Soln 5 ML UDC PO PRN ×2 (13:00→21:44)
[2021-03-27] MEDS: Melatonin 3 MG TABLET PO PRN (21:44)
[2021-03-27] MEDS: Azithromycin 500 MG in D5% in Water 250 ML IVPB SCH (21:44)
[2021-03-28 02:49] LABS: Hematocrit 31.7 % (35.3-44.9); Hemoglobin 10.1 g/dL (11.5-15.4); Mean Corpuscular HGB Conc 31.9 g/dL (31.6-35.5); Mean Corpuscular Hemoglobin 30.6 pg (28.0-33.3); Mean Corpuscular Volume 96.1 fL (83.0-100.0); Mean Platelet Volume 9.5 fL (9.4-12.4); Platelet Count 289 K/mcL (140-400); Red Cell Distribution Width 11.9 % (11.5-14.5); White Blood Count 7.7 K/mcL (4.3-11.1)
[2021-03-28 03:13] LABS: Calcium 8.3 mg/dL (8.6-10.3); Potassium 3.7 mEq/L (3.5-5.1)
[2021-03-28] MEDS: cefTRIAXone 1,000 MG in Water for inj. (sterile) 10 ML IVP SCH (08:26)
[2021-03-28] MEDS: Metoprolol XL (24 HR) Succ 25 MG TAB.ER.24H PO SCH (08:27)
[2021-03-28] MEDS: *HR* Rivaroxaban 10 MG TABLET PO SCH (08:27)
[2021-03-28] MEDS: Azithromycin 500 MG in D5% in Water 250 ML IVPB SCH (23:04)
[2021-03-29 06:22] LABS: Hematocrit 32.1 % (35.3-44.9); Hemoglobin 10.2 g/dL (11.5-15.4); Mean Corpuscular HGB Conc 31.8 g/dL (31.6-35.5); Mean Corpuscular Hemoglobin 30.5 pg (28.0-33.3); Mean Corpuscular Volume 96.1 fL (83.0-100.0); Mean Platelet Volume 9.4 fL (9.4-12.4); Platelet Count 325 K/mcL (140-400); Red Blood Count 3.34 M/mcL (3.82-4.97); Red Cell Distribution Width 11.9 % (11.5-14.5); White Blood Count 7.6 K/mcL (4.3-11.1)
[2021-03-29 06:40] LABS: Calcium 8.7 mg/dL (8.6-10.3)
[2021-03-29] MEDS: cefTRIAXone 1,000 MG in Water for inj. (sterile) 10 ML IVP SCH (08:03)
[2021-03-29] MEDS: *HR* Rivaroxaban 10 MG TABLET PO SCH (08:03)
[2021-03-29] MEDS: Metoprolol XL (24 HR) Succ 25 MG TAB.ER.24H PO SCH (08:03)
[2021-03-29] MEDS: Azithromycin 500 MG in D5% in Water 250 ML IVPB SCH (22:35)
[2021-03-30 01:14] LABS: Hematocrit 31.6 % (35.3-44.9); Hemoglobin 10.3 g/dL (11.5-15.4); Mean Corpuscular HGB Conc 32.6 g/dL (31.6-35.5); Mean Corpuscular Hemoglobin 30.8 pg (28.0-33.3); Mean Corpuscular Volume 94.6 fL (83.0-100.0); Mean Platelet Volume 9.4 fL (9.4-12.4); Platelet Count 333 K/mcL (140-400); Red Blood Count 3.34 M/mcL (3.82-4.97); Red Cell Distribution Width 11.9 % (11.5-14.5); White Blood Count 6.2 K/mcL (4.3-11.1)
[2021-03-30 01:31] LABS: Calcium 8.6 mg/dL (8.6-10.3); Potassium 3.9 mEq/L (3.5-5.1)
[2021-03-30] MEDS: Metoprolol XL (24 HR) Succ 25 MG TAB.ER.24H PO SCH (09:07)
[2021-03-30] MEDS: *HR* Rivaroxaban 15 MG TABLET PO SCH (09:07)
[2021-03-30] MEDS: cefTRIAXone 1,000 MG in Water for inj. (sterile) 10 ML IVP SCH (09:07)
[2021-03-30] MEDS: Azithromycin 500 MG in D5% in Water 250 ML IVPB SCH (23:03)
[2021-03-31 01:22] LABS: Hematocrit 31.6 % (35.3-44.9); Hemoglobin 10.5 g/dL (11.5-15.4); Mean Corpuscular HGB Conc 33.2 g/dL (31.6-35.5); Mean Corpuscular Hemoglobin 31.5 pg (28.0-33.3); Mean Corpuscular Volume 94.9 fL (83.0-100.0); Mean Platelet Volume 9.4 fL (9.4-12.4); Platelet Count 349 K/mcL (140-400); Red Blood Count 3.33 M/mcL (3.82-4.97); Red Cell Distribution Width 11.9 % (11.5-14.5)
[2021-03-31 01:42] LABS: Potassium 4.3 mEq/L (3.5-5.1)
[2021-03-31] MEDS: cefTRIAXone 1,000 MG in Water for inj. (sterile) 10 ML IVP SCH (08:57)
[2021-03-31] MEDS: *HR* Rivaroxaban 15 MG TABLET PO SCH (08:57)
[2021-03-31] MEDS: Metoprolol XL (24 HR) Succ 25 MG TAB.ER.24H PO SCH (08:57)
[2021-03-31] MEDS: 0.9 % Sodium Chloride 1,000 ML IVC SCH (17:14)
[2021-03-31] MEDS: Azithromycin 500 MG in D5% in Water 250 ML IVPB SCH (23:25)
[2021-04-01 06:13] LABS: Hematocrit 36.5 % (35.3-44.9); Hemoglobin 11.8 g/dL (11.5-15.4); Mean Corpuscular HGB Conc 32.3 g/dL (31.6-35.5); Mean Corpuscular Hemoglobin 30.3 pg (28.0-33.3); Mean Corpuscular Volume 93.6 fL (83.0-100.0); Platelet Count 396 K/mcL (140-400); Red Cell Distribution Width 11.9 % (11.5-14.5); White Blood Count 6.8 K/mcL (4.3-11.1)
[2021-04-01 06:28] LABS: Calcium 9.8 mg/dL (8.6-10.3); Potassium 4.5 mEq/L (3.5-5.1)
[2021-04-01] MEDS: Metoprolol XL (24 HR) Succ 25 MG TAB.ER.24H PO SCH (07:32)
[2021-04-01] MEDS: cefTRIAXone 1,000 MG in Water for inj. (sterile) 10 ML IVP SCH (07:32)
[2021-04-01] MEDS: *HR* Rivaroxaban 15 MG TABLET PO SCH (07:32)
[2021-04-01] MEDS: 0.9 % Sodium Chloride 1,000 ML IVC SCH (14:19)
[2021-04-01] MEDS: Melatonin 3 MG TABLET PO PRN (20:41)
[2021-04-02] MEDS: Metoprolol XL (24 HR) Succ 25 MG TAB.ER.24H PO SCH (07:36)
[2021-04-02] MEDS: *HR* Rivaroxaban 15 MG TABLET PO SCH (07:36)
[2021-04-02] MEDS: Melatonin 3 MG TABLET PO PRN (19:25)
[2021-04-03] MEDS: Metoprolol XL (24 HR) Succ 25 MG TAB.ER.24H PO SCH (07:42)
[2021-04-03] MEDS: *HR* Rivaroxaban 15 MG TABLET PO SCH (07:42)
[2021-04-03] MEDS: Melatonin 3 MG TABLET PO PRN (19:50)
[2021-04-04] MEDS: *HR* Rivaroxaban 15 MG TABLET PO SCH (09:01)
[2021-04-04] MEDS: Metoprolol XL (24 HR) Succ 25 MG TAB.ER.24H PO SCH (09:01)
[2021-04-05] MEDS: *HR* Rivaroxaban 15 MG TABLET PO SCH (08:40)
[2021-04-05] MEDS: Metoprolol XL (24 HR) Succ 25 MG TAB.ER.24H PO SCH (08:40)
[2021-04-05 15:01] VITALS: BP 120/80; PULSE 90; TEMP 98.1; O2SAT 96
== END 2021-04-05 17:01 | disposition home health service (06) | DRG 871 ==
LOC: 3BNU 21:16 → EMEROOARM 21:16 → SUATTDRO 03-27 00:37 → 3BNU 03-27 01:00
PROVIDERS: ADMIT Internal Medicine; ATTEND Registered Nurse